=== PATIENT | female | born 1940 | race Caucasian/White ===

== ENCOUNTER 2024-05-01 17:29 | Inpatient (IN) | payer OTHER, SELFPAY ==
[2024-05-01] VITALS (10 sets, daily range): BP systolic 134–166; BP diastolic 68–96; BMI 25.2
--- NOTE | 2024-05-01 15:31 | ED.GENMED ---
History of Present Illness
General
Chief Complaint: Blood Pressure Problem
Source: patient
Exam Limitations: none
Time Seen by Provider: 05/01/24 14:49
Nursing documentation reviewed up to this point in time: agreed with
History of Present Illness
History of Present Illness:
83-year-old female past medical history of hypertension hyperlipidemia presenting to the emergency department today with concerns of feeling lightheaded and feeling unsteady when walking. She denies any specific room spinning dizziness but claims
to be generalized weakness. No specific focal weakness. Denies specific changes in vision trouble speaking or swallowing. Denies any headache no recent injury or recent illness that she is aware of.
Review of Systems
Review of Systems
Allergies reviewed?: Yes
All Other Systems: ROS reviewed and negative except as documented in HPI and ROS
Phy Exam
Physical Exam
Physical Exam:
GENERAL: Alert , in no apparent distress
EYE: pupils equal and reactive normal visual carlin no nystagmus
NECK: Supple, no significant adenopathy.
ENT: o/p clr, mmm.
CARDIAC: Regular rate and rhythm .
LUNGS: Clear breath sounds bilaterally, no acute respiratory distress, no wheezes/rales/rhonchi
ABDOMEN: Soft, without focal tenderness, no r/g, no cvat
NEUROLOGICAL: Alert and oriented, no focal neuro deficits 5 out of 5 upper and lower extremity strength normal sensation with palpating bilaterally normal finger-nose and amfg-iv-muam no pronator drift
SKIN: Warm and dry, skin intact.
MUSCULOSKELETAL: No edema, well perfused.
PSYCH: Normal and appropriate interaction.
Course
Orders/Labs/Results
Orders:
Orders
05/01/24 14:47
ECG [Electrocardiogram (*1)] Urgent
Reason for Study: Vertigo / Dizzy
05/01/24 14:48
EKG- Treatment ONCE
05/01/24 15:00
CT Head W/o Iv Contrast Urgent
Comment:
Reason For Exam: generalized weakness
Regular
At Your Request: Limited Participation
Fluid Restriction: 1000 mL/day (33 oz)
Bedside Glucose- Treatment ONCE
Cardiac Monitoring- Treatment ONCE
05/01/24 15:14
COVID-19 Antigen Urgent
Source: Nasal Swab
Complete Blood Count/With Diff Urgent
Comprehensive Metabolic Panel Urgent
Magnesium Urgent
Comment: ADD ON
Phosphorus Urgent
Comment: ADD ON
Serum Osmolality Urgent
Comment: ADD ON
TSH Reflex To Free T4 Urgent
Troponin I Urgent
Influenza A+B Rapid Molecular Urgent
COMPA Source: Nasal Swab
Specimen Description:
05/01/24 16:01
Add On- LAB Urgent
Tests Added?: urine sodium,urine osmalality, serum osmalality
05/01/24 16:48
Admit/Transfer Patient As Directed
Co-Sign Provider:
Level of Care: Inpatient admission
Assign to:: ICU
Physician / Group: Court Hills
Diagnosis: severe hyponatremia
Reason for Hospitalization: severe hyponatremia
Expected length of stay greater than two midnights?: Yes
ELOS- Estimated Length of Stay in days: 3
I certify the patient meets the requirements for IP care: Yes
PRN Pain Medication Management As Directed
May give lesser potent ordered pain med per pt: Yes
preference::
Protocol:: Medication orders for pain may be administered in a
manner that supports deferring to patient preference
when the pt is:
- Requesting an ordered lesser potent pain medication.
Least to most potent pain medications are defined
as: acetaminophen < NSAID < tramadol < opioids
(morphine, oxycodone, hydromorphone).
- Requesting a lesser dose of the same medication IF
ORDERED.
- Requesting a less intrusive route of administration
if both routes are prescribed by the provider (PO <
IV).
05/01/24 16:50
Code Status As Directed
Resuscitation Status: Full Code
05/01/24 16:52
Add On- LAB Routine
Tests Added?: magnesium, phosphorous
05/01/24 17:00
3% Sodium Chloride 250 ml [Sodium Chloride 3%] 250 ml IV ONCE
05/01/24 17:29
Potassium Chloride [KCl] 20 meq PO NOW STA
05/01/24 18:04
Acetaminophen [Tylenol] 1,000 mg PO Q6HPRN PRN
Enoxaparin Sodium [Lovenox] 40 mg SC QPM
05/01/24 18:04
Consult Finisher Map And Chart [Finisher Map And Chart Consult] Routine
Consulting Provider: Adriana Quesada
Was physician already notified: Yes
Consult Nephrology [NEPHROLOGY CONSULT] Routine
Consulting Provider: Joseph Hernandez V.
Was physician already notified: Yes
Activity As Directed
Activity Level: As Tolerated
Bedside Glucose Monitoring-ONCE As Directed
Comment: upon arrival to ICU
Notify MD As Directed
Notify physician if: While in ICU level of care:
glucose greater than or equal to 180 mg/dL once, contact provider to initiate Critical
Care Glycemic Protocol Target Range 140-180 mg/dL.
Nursing to Place Non Medication Order As Directed
Physician Order: please measure PVR and TT me results
Above order entered?: Yes
Vital Signs As Directed
Frequency: Per unit guidelines
Weight As Directed
Frequency: Daily
Comment: height and weight upon arrival to ICU.
DX Deep Vein Thrombosis Video Routine
05/01/24 18:36
Urinalysis Reflex To Culture Urgent
Date Specimen was Collected: 05/01/24
Time Specimen was Collected: 15:03
Urine Osmolality Random [Osmolality, Random Urine] Urgent
Date Specimen was Collected: 05/01/24
Time Specimen was Collected: 16:09
Urine Sodium Urgent
Date Specimen was Collected: 05/01/24
Time Specimen was Collected: 16:09
05/01/24 20:00
BMP [Basic Metabolic Panel] Q4
INR [Prothrombin Time] Routine
Lisinopril [Zestril] 20 mg PO BID
05/02/24 00:14
BMP [Basic Metabolic Panel] Q4
05/02/24 04:19
BMP [Basic Metabolic Panel] Q4
05/02/24 06:00
Levothyroxine [Synthroid] 25 mcg PO DAILY@0600
CR Chest Portable - 1 View Routine
Comment:
Reason For Exam: baseline ICU
Reason Study Needs to be Portable: Patient Unstable
05/02/24 08:00
BMP [Basic Metabolic Panel] Q4
Amlodipine [Norvasc] 5 mg PO DAILY
Atorvastatin [Lipitor] 10 mg PO DAILY
05/02/24 12:00
BMP [Basic Metabolic Panel] Q4
05/02/24 16:00
BMP [Basic Metabolic Panel] Q4
05/02/24 20:00
BMP [Basic Metabolic Panel] Q4
05/03/24 00:00
BMP [Basic Metabolic Panel] Q4
Abnormal Lab Results
05/01/24
15:14
WBC 4.2 L 10^3/uL
(4.8-10.8)
RBC 2.64 L 10^6/uL
(4.20-5.40)
Hgb 11.1 L g/dL
(12.0-16.0)
Hct 29.8 L %
(37.0-47.0)
MCV 112.9 H fL
(81.0-99.0)
MCH 42.0 H pg
(27.0-31.0)
MCHC 37.2 H g/dL
(33.0-37.0)
RDW 10.6 L %
(11.5-14.5)
Absolute Lymphs (auto) 0.5 L 10^3/uL
(1.2-3.4)
Immature Gran % 1.0 H %
(0-0.5)
Neutrophils % 76.3 H %
(42.2-75.2)
Lymphocytes % 11.3 L %
(20.5-51.1)
Monocytes % 9.9 H %
(1.7-9.3)
Sodium 106 L* mmol/L
(135-145)
Potassium 3.3 L mmol/L
(3.5-5.1)
Chloride 71 L mmol/L
(98-107)
Creatinine 0.5 L mg/dL
(0.6-1.0)
Glucose 128 H mg/dl
(70-99)
Serum Osmolality 228 L mOsm/kg
(275-300)
Magnesium 1.5 L mg/dl
(1.6-2.3)
Total Bilirubin 1.6 H mg/dl
(0.2-1.3)
05/01/24 15:14
05/01/24 15:14
Vital Signs
Initial and Last Documented VS:
Initial Vital Signs
Temp Pulse Resp BP Pulse Ox
98.1 F 69 20 162/85 99
05/01/24 14:49 05/01/24 14:49 05/01/24 14:49 05/01/24 14:49 05/01/24 14:49
Last Documented Vital Signs
Temp Pulse Resp BP Pulse Ox
97.6 F 70 17 157/75 94
05/02/24 04:04 05/02/24 06:00 05/02/24 06:00 05/02/24 06:00 05/02/24 06:00
MDM/Problems Addressed
MDM/Problems Addressed:
83-year-old female presenting to the emergency department today with concerns of lightheadedness generalized weakness over the past 2 days. Denies any specific inciting event or preceding symptoms. She did start new medications for blood pressure
2 weeks ago, carvedilol. On arrival mildly hypertensive otherwise vital signs are normal. Patient no obvious distress no focal neurologic deficits. Labs obtained showing sodium level of 106 chloride of 71 other electrolytes without emergent
findings. This likely explains patient's symptoms. Patient does take chlorthalidone but no obvious additional cause at this point that was identified. No excessive free water intake. Case was discussed with nephrology recommending 20 cc/h
hypertonic saline. Otherwise No worsening of neurologic symptoms during ER stay.
*Critical Care Note
Total Time (30-74mins, 75-104mins- exclusive of procedures): Not Applicable
comment:
Critical care statement: A total of 31 minutes of critical care time was provided for this patient. This includes management of severe electrolyte abnormality discussion with consultants and bedside discussion with patient. This time with separate
from time utilized to perform the aforementioned documented procedures
ED Attending Note
-
Portions of this chart may have been created with voice recognition software.� Occasional wrong word or��sound alike� substitutions may have occurred due to the inherent limitations of voice recognition software.
Discharge Plan
Departure
Patient Disposition: Admit
Date of Disposition: 05/01/24
Time of Disposition: 16:16
Admit to: Telemetry
Admit to doctor: Hills
Presentation/result/management discussed w/ accepting MD/DO: Hospitalist
Patient with high blood pressure during this ER visit?: No
Condition: Fair
Covid-19: Not Applicable
Discharge Problem:
Hyponatremia
Interventions
Interventions:
*General Assessment Last Done: 05/01/24 14:49
*ED COVID-19 Vaccine History Last Done: 05/01/24 18:18
*Nursing Disposition Last Done: 05/01/24 18:12
ED- Cardiac Assessment Last Done: 05/01/24 15:24
ED- Neurological Assessment Last Done: 05/01/24 15:24
ED- Pulmonary Assessment Last Done: 05/01/24 15:24
Discharge Date and Time
Discharge Date/Time: 05/01/24 18:13
[2024-05-01 15:48] LABS: COVID-19 Antigen Negative (Negative)
[2024-05-01 15:51] LABS: ALT (SGPT) 22 U/L (0-35); AST (SGOT) 30 U/L (14-36); Albumin 4.7 g/dl (3.5-5.0); Alkaline Phosphatase 98 U/L (38-126); Blood Urea Nitrogen 16 mg/dl (7-17); Calcium 10.1 mg/dl (8.4-10.2); Carbon Dioxide 22 mmol/L (22-30); Chloride 71 mmol/L (98-107); Glucose 128 mg/dl (70-99); Potassium 3.3 mmol/L (3.5-5.1); Sodium 106 mmol/L (135-145); Total Bilirubin 1.6 mg/dl (0.2-1.3); eGFR > 60.00
[2024-05-01 15:58] LABS: Troponin I < 0.012 ng/ml
--- NOTE | 2024-05-01 16:12 | W.CON.NEPH ---
Consultation
-
Date/Time Consultation Requested: 05/01/2024 4:00
Date/Time Consultation Performed: 05/01/2024 4:00 PM
Requesting Provider: Dr. Hills
Performing Provider: Dr. Hernandez
Reason for Consultation: Hyponatremia
Medical History
-
Chief Complaint: Hyponatremia
History of Present Illness:
The patient is a 83-year-old female with a past medical history of hypertension maintained on chlorthalidone, amlodipine, lisinopril, and recently over the past 2 weeks carvedilol. She presented to the hospital feeling lightheaded and unstable with
her walking. On presentation to the hospital she was found to have a serum sodium of 106 and nephrology was emergently consulted. Patient with noted change of mental status.
Past Medical History
HTN
Dyslipidemia
Hypothyroidism
Social History
Tobacco: Non-Smoker
Alcohol: Occasional
Drug: None
Personal: Single
Family History
Family History: Not Pertinent
Allergies / Home Medications
Allergy/AdvReac Type Severity Reaction Status Date / Time
ciprofloxacin Allergy Unknown Verified 05/01/24 14:48
Review of Systems
-
History Source: Patient
All other systems: Negative unless noted
Constitutional: Fatigue and Other (Patient expresses extreme anxiety, poor p.o. intake)
Respiratory: No Symptoms
Cardiac: No Symptoms
Abdomen/GI: No Symptoms
: No Symptoms
Musculoskeletal: Other (Thigh discomfort)
Skin: No Symptoms
Neurological: Other (Confusion, fall last week, unstable gait)
Physical Exam
Vital Signs
Vital Signs
Temp Pulse Resp BP Pulse Ox
98.1 F 69 29 162/85 98
05/01/24 14:49 05/01/24 15:23 05/01/24 15:23 05/01/24 14:49 05/01/24 15:23
Lab Results
05/01/24 15:14
05/01/24 15:14
Sodium 106 mmol/L (135-145) L* 05/01/24 15:14
Potassium 3.3 mmol/L (3.5-5.1) L 05/01/24 15:14
Chloride 71 mmol/L (98-107) L 05/01/24 15:14
Carbon Dioxide 22 mmol/L (22-30) 05/01/24 15:14
BUN 16 mg/dl (7-17) 05/01/24 15:14
Creatinine 0.5 mg/dL (0.6-1.0) L 05/01/24 15:14
eGFR > 60.00 05/01/24 15:14
Glucose 128 mg/dl (70-99) H 05/01/24 15:14
Calcium 10.1 mg/dl (8.4-10.2) 05/01/24 15:14
Albumin 4.7 g/dl (3.5-5.0) 05/01/24 15:14
Physical Exam
General: AOx2, Nontoxic , NAD, lethargic
HEENT: PERRL, EOMI, Anicteric, Conjunctivae Clear, Ear/Nose Intact, Hearing Normal, Oropharynx Clear/Moist, Dentition Intact, Facial Symmetry, Neck Supple, Neck: Trachea Midline, No JVD and No Thyromegaly, no Bruits
Respiratory: Clear to auscultation bilaterally with normal lung excursion
Cardiac: S1/S2 and Regular Rate/Rhythm
Breast: Deferred by me
Abdomen: Soft, Nontender, Nondistended, Normal Bowel Sounds and No Hepatosplenomegaly
Rectal: Deferred by Provider
Genito-urinary: No Costovertebral Tenderness
Extremities: No Clubbing, No Cyanosis and No Edema
Skin: No Rash or open lesions
Neuro: Nonfocal/Grossly Intact, CN II-XII (Intact) and Strength (Musculoskeletal exam 5 out of 5 both upper and lower extremities)
Hematologic/Lymphatic: No Cervical Lymphadenopathy, No Submandibular Lymphadenopathy and No Supraclavicular Lymphadenopathy
Psych: Anxious affect
Vascular: plus 2 pedal and radial pulses
Data Reviewed
-
CT Scan: Report Reviewed by me (CT of head report to be reviewed: No intracranial abnormalities noted)
Medical Tests (Nuc Med, Echo etc): Other (EKG report reviewed personally sinus rhythm with PACs left anterior fascicular block at 72 beats per)
Labs: Labs Reviewed by me (BMP CBC)
Assessment/Plan
-
Impression:
Euvolemic hyponatremia (sodium of 106)
Hypokalemia
Change of mental status
Hypertension
Dyslipidemia
Hypothyroid
Plan:
Hyponatremia
-Patient critically ill with symptomatic hyponatremia with serum sodium level of 106
-Obtain urine osmolality urine sodium
-Patient is at high risk for neurological event including seizure and central pontine myelinolysis the patient is overcorrected too rapidly
-Fluid restriction set at 1000 cc/day
-Hypertonic saline to be started at 20 cc/h with every 4 hour electrolytes to be follow
-Goal correction rate of serum sodium should be around 10 mill moles per liter over next 24 hours
-Follow-up TSH and free T4
-Replete potassium with 40 mill equivalents
-Patient is critically ill and will be admitted to the intensive care unit for profound symptomatic hyponatremia with significant risk for neurological sequela
-40 minutes of critical care time spent with patient
[2024-05-01 16:15] LABS: TSH Reflex To Free T4 2.18 uIU/ml (0.47-4.68)
[2024-05-01 16:23] LABS: % Basophils 0.5 % (0-2); % Lymphocytes 11.3 % (20.5-51.1); % Monocytes 9.9 % (1.7-9.3); % Neutrophils 76.3 % (42.2-75.2); Absolute Lymphocytes 0.5 10^3/uL (1.2-3.4); Absolute Monocytes 0.4 10^3/uL (0.1-0.6); Absolute Neutrophils 3.2 10^3/uL (1.4-6.5); Hematocrit 29.8 % (37.0-47.0); Hemoglobin 11.1 g/dL (12.0-16.0); Mean Corp Hgb Conc. 37.2 g/dL (33.0-37.0); Mean Corpuscular Volume 112.9 fL (81.0-99.0); Mean Platelet Volume 8.8 fL (7.4-10.4); Nucleated Red Blood Cells % 0.5 %; Platelet Count 331 10^3/uL (130-400); Red Blood Cell Count 2.64 10^6/uL (4.20-5.40); Red Cell Dist. Width 10.6 % (11.5-14.5); White Blood Cell Count 4.2 10^3/uL (4.8-10.8)
--- NOTE | 2024-05-01 16:23 | HPS.HSE ---
Family Physician
-
Family Physician: CAPO CHAN MD
Chief Complaint
-
weakness/fatigue
History of Present Illness
Ms. Mara Ambrose is a 83 yo woman with hx essential HTN, HLD presents to the ER with weakness. She is seen at bedside with her friend.
Patient states she feels very panicky and weak. She lives alone. Doesn't normally use a cane or a walker. She had a fall last week (outside, got knocked by the wind) and hit her head. Per friend she refused to come to the ER. Currently patient
denies headache or focal weakness.
No recent fevers/chills. She hasn't been eating well. Reports drinking a lot of water but friend shakes her head no. No abdominal pain. No nausea/vomiting/diarrhea. No LE swelling.
Per friend, another friend last week and since then patient has been very anxious.
She is on Chlorthalidone at home
Medical History
Past Medical History
Past Medical History: Reports HTN and Hypercholesterolemia
Past Surgical History: Reports Other
Social History
Tobacco: Non-smoker
Alcohol: Occasional
Family History
Family History: Not pertinent
Allergies / Home Medications
Allergies reflects when Allergies were last updated in [facility].
Home Medications with original date entered in [facility]
Allergy/Medication List:
Allergies
Allergy/AdvReac Type Severity Reaction Status Date / Time
ciprofloxacin Allergy Unknown Verified 05/01/24 14:48
Home Medications
acetaminophen 500 mg tablet (Tylenol Extra Strength) 1,000 mg PO Q6HPRN PRN mild pain/fever 05/01/24
amlodipine 5 mg tablet 5 mg PO DAILY 05/01/24
atorvastatin 10 mg tablet 10 mg PO DAILY 05/01/24
chlorthalidone 25 mg tablet 25 mg PO DAILY 05/01/24
cholecalciferol (vitamin D3) 25 mcg (1,000 unit) tablet (Vitamin D3) 25 mcg PO DAILY 05/01/24
hydroxyurea 500 mg capsule 500 mg PO BID 05/01/24
levothyroxine 25 mcg tablet 25 mcg PO DAILY 05/01/24
lisinopril 20 mg tablet 20 mg PO BID 05/01/24
Review of Systems
-
History Source: Patient
A 12 point ROS was completed and negative except as noted: Yes
Physical Exam
Vital Signs
Vital Signs
Temp Pulse Resp BP Pulse Ox
98.1 F 69 29 162/85 98
05/01/24 14:49 05/01/24 15:23 05/01/24 15:23 05/01/24 14:49 05/01/24 15:23
Physical Exam
General: No Apparent Distress
HEENT: PERRLA
Respiratory: Clear; No Wheezes
Cardiac: S1/S2 and Regular Rhythm
GI: Soft and Non Tender
Musculoskeletal: No Edema
Skin: Warm and Dry; No Rash
Neuro: AO x 3
Psych: Confused
Laboratory Results
-
05/01/24 15:14
Laboratory Results
Total Bilirubin 1.6 mg/dl (0.2-1.3) H 05/01/24 15:14
AST 30 U/L (14-36) 05/01/24 15:14
ALT 22 U/L (0-35) 05/01/24 15:14
Alkaline Phosphatase 98 U/L (38-126) 05/01/24 15:14
Troponin I < 0.012 ng/ml 05/01/24 15:14
Data Reviewed
-
Diagnostic Radiology: Report Reviewed by me
Lab Data: Labs Reviewed by me
Impression/Plan
-
Ms. Mara Ambrose is a 83 yo woman with hx essential HTN, HLD presents to the ER with weakness.
Triage VS: T 98.1, P 69, RR 20, BP 162/85, SpO2 99%
LABS: WBC 4.2, Hg 11.1, PLT 331, Na 106, K+ 3.3, Cl 71, Cr 0.5, Glucose 128, T. Bili 1.6, AST 30, ALT 22, Alk Phos 98, Trop < 0.012
TSH 2.18
3% Saline ordered
Severe Hyponatremia
-3% Saline ordered - give at 20cc/hr
-admit to ICU
-q4 BMP checks
-appreciate Renal Consult, Exchange Clerk consult
-1000cc fluid restriction
-hold [employer]DLEWARE SOLUTIONS ARCHITECT Chlorthalidone
-hold MID[employer]LE[employer] SOLUTIONS ARCHITECT Hydroxyurea for now (can affect Na)
-F/U urine studies
-F/U PVR
-PT/OT when labs more stable
Essential HTN
-hold [employer] SOL[employer] ARCHITECT Chlorthalidone now and at discharge
-M[employer]DLE[employer] SOL[employer]IONS ARCHITECT amlodipine, Lisinopril
HLD - MIDDLEWARE SOLUTIONS ARCHITECT Atorvastatin
Hypothyroidism - MIDDLEWARE SOLUTIONS ARCHITECT Synthroid
DVT PPx Lovenox subQ
FULL CODE
Total Critical Care Time 60_ minutes. I was immediately available to the patient and staff. I personally examined, reviewed labs, diagnostic images/reports, interpretations, treatment plans, discussed patient care with other providers and family
or caregivers (if patient is unable to make decisions), entered orders as appropriate and documented the medical record.
[2024-05-01] MEDS: SODIUM CHLORIDE 3% 250 IV (16:39)
[2024-05-01 17:03] LABS: Osmolality Serum 228 mOsm/kg (275-300)
[2024-05-01 17:16] LABS: Magnesium 1.5 mg/dl (1.6-2.3); Phosphorus 2.8 mg/dl (2.5-4.5)
[2024-05-01] MEDS: KCL 20 MEQ PO (17:50)
[2024-05-01 18:24] LABS: Glucose - Point of Care 137 mg/dl (70-99)
--- NOTE | 2024-05-01 18:55 | PTCARENOTE ---
Pt received as admit from ED. AAOx3. Pt states 'I'm very anxious, I feel like I'm having a panic attack.' Dr. Hills notified. Will try to avoid sedative medications due to low sodium level but can give low dose Ativan if needed. 3% NS infusing
through R FA PIV per order. Purewick in place upon arrival. Pt stating that she feels the need to urinate but unable to do so. Bladder scanned pt for 798mL. straight cath for 900mL. NSR on tele, HRs 70s. SpO2 97% on room air. Assessment documented.
Pt resting in bed, call caputo in reach. Plan for repeat BMP at 1999.
[2024-05-01 19:06] LABS: Urine Albumin Negative (Neg - Trace); Urine Bilirubin Negative (Negative); Urine Character Clear (Clear); Urine Color Yellow; Urine Glucose Negative (Negative); Urine Ketone 3+ (Negative); Urine Leukocyte Negative (Negative); Urine Nitrite Negative (Negative); Urine Occult Blood Negative (Negative); Urine Urobilinogen Negative (Neg - 1+)
[2024-05-01] MEDS: LOVENOX 40 MG SC (19:13)
[2024-05-01] MEDS: ZESTRIL 20 MG PO (19:13)
[2024-05-01 19:14] LABS: Osmolality Urine 426 mOsm/kg (300-900)
[2024-05-01 19:29] LABS: Urine Sodium 112 mmol/L (30-90)
--- NOTE | 2024-05-01 20:20 | PTCARENOTE ---
Received pt from previous RN. Pt is AAOx3, anxious, forgetful, [place]. Pt states she is anxious and feels panicky, ICU GRID OPERATOR Renetta notified, Melatonin ordered (see MAR). NSR w/ PACs on the monitor. On RA O2 sat 96%, lungs diminished. Pt with poor
appetite. Pt states she is having difficulty voiding, will bladder scan per protocol. 3% infusing @ 20 ml/hr. CHG and mouth care provided.
--- NOTE | 2024-05-01 20:23 | PTCARENOTE ---
Received pt from previous RN. Pt is AAOx3, anxious, forgetful, [place]. Pt states she is anxious and feels panicky, ICU MARKETING CONTENT COORDINATOR Renetta notified, Melatonin ordered (see MAR). NSR w/ PACs on the monitor. On RA O2 sat 96%, lungs diminished. Pt with poor
appetite, nausea and vomited x1, PRN Zofran added (see MAR). Pt states she is having difficulty voiding, will bladder scan per protocol. 3% infusing @ 20 ml/hr. CHG and mouth care provided. Friend and daughter @ bedside. Safe environment maintained.
[2024-05-01 20:26] LABS: INR 1.02; PT 13.9 Sec (11.4-14.6)
[2024-05-01 20:27] LABS: APTT 46.2 Sec (23.4-35.0)
[2024-05-01 21:02] LABS: Blood Urea Nitrogen 13 mg/dl (7-17); Calcium 9.6 mg/dl (8.4-10.2); Carbon Dioxide 23 mmol/L (22-30); Chloride 72 mmol/L (98-107); Estimated Creatinine Clearance 55 ml/min; Glucose 201 mg/dl (70-99); Potassium 3.2 mmol/L (3.5-5.1); Sodium 106 mmol/L (135-145); eGFR > 60.00
[2024-05-01] MEDS: MELATONIN 5 MG PO (21:12)
[2024-05-01] MEDS: KCL ELIXIR 40 MEQ PO (21:12)
[2024-05-01] MEDS: ZOFRAN 4 MG IV (22:08)
[2024-05-02] VITALS (22 sets, daily range): BP systolic 99–157; BP diastolic 56–85; BMI 24.9
--- NOTE | 2024-05-02 00:47 | PTCARENOTE ---
Systems reviewed. Pt with no urine output, bladder scanned for 580ml, straight cath for 650ml. Daughter @ bedside. Safe environment maintained.
[2024-05-02 01:04] LABS: Blood Urea Nitrogen 11 mg/dl (7-17); Calcium 9.5 mg/dl (8.4-10.2); Carbon Dioxide 22 mmol/L (22-30); Chloride 75 mmol/L (98-107); Estimated Creatinine Clearance 55 ml/min; Glucose 146 mg/dl (70-99); Potassium 3.7 mmol/L (3.5-5.1); Sodium 106 mmol/L (135-145); eGFR > 60.00
--- NOTE | 2024-05-02 01:30 | W.PN.UPDATE ---
Update Note
Progress Note Update
Updated Dr. Hernandez, header setup operator about repeat BMP Na is 106, recommendations received will increase hypertonic saline 3% to 30cc/hr and continue trend BMP.
--- NOTE | 2024-05-02 01:49 | PTCARENOTE ---
ICU SHOE TURNER Renetta notified Sherrie Hernandez 106. 3% increased to 30 ml/hr.
--- NOTE | 2024-05-02 03:02 | VATNOTE ---
PICC ORDER NOTED. PT WITH ADEQUATE IV ACCESS AT THIS TIME. APPROPRIATE FOR INSERTION IN AM PER PCN.
[2024-05-02] MEDS: SODIUM CHLORIDE 3% 250 IV (03:12)
--- NOTE | 2024-05-02 04:45 | PTCARENOTE ---
Systems reviewed, no new changes in assessment. Pt still very anxious, confused and panicky. AM labs provided. Safe environment maintained.
[2024-05-02] MEDS: SYNTHROID 25 MCG PO (05:31)
[2024-05-02 05:33] LABS: Blood Urea Nitrogen 10 mg/dl (7-17); Calcium 9.5 mg/dl (8.4-10.2); Carbon Dioxide 20 mmol/L (22-30); Chloride 74 mmol/L (98-107); Estimated Creatinine Clearance 55 ml/min; Glucose 117 mg/dl (70-99); Magnesium 1.4 mg/dl (1.6-2.3); Potassium 3.3 mmol/L (3.5-5.1); Sodium 107 mmol/L (135-145); eGFR > 60.00
[2024-05-02] MEDS: MAGNESIUM SULFATE 50 IV (06:07)
[2024-05-02] MEDS: KCL 270 MEQ IV (06:15)
[2024-05-02 07:27] LABS: Hematocrit 32.9 % (37.0-47.0); Hemoglobin 12.8 g/dL (12.0-16.0); Mean Corp Hgb Conc. 38.9 g/dL (33.0-37.0); Mean Corpuscular Hgb 42.5 pg (27.0-31.0); Mean Corpuscular Volume 109.3 fL (81.0-99.0); Platelet Count 320 10^3/uL (130-400); Red Blood Cell Count 3.01 10^6/uL (4.20-5.40); Red Cell Dist. Width 10.4 % (11.5-14.5); White Blood Cell Count 5.9 10^3/uL (4.8-10.8)
[2024-05-02] MEDS: LIPITOR 10 MG PO (07:47)
--- NOTE | 2024-05-02 08:02 | W.PN.NEPH.PH ---
Today's Communication / Plan
-
Maintain hypertonic saline at 30 cc [address] Hinojosa cath
Continue electrolytes every 4 hours
Assessment/Plan
-
Impression:
Euvolemic hyponatremia (sodium of 106)
Hypokalemia
Change of mental status
Hypertension
Dyslipidemia
Hypothyroid
Plan:
Hyponatremia
-Patient critically ill with symptomatic hyponatremia with serum sodium level of 106 now only up to 107
-Continue every 4 hour electrolyte
-Place Hinojosa catheter as she has been straight cath intermittently for large volumes
-Obtain urine osmolality urine sodium: 426 and 112
-Patient is at high risk for neurological event including seizure and central pontine myelinolysis the patient is overcorrected too rapidly
-Fluid restriction set at 1000 cc/day
-Will continue hypertonic saline and Lasix as needed t
-Goal correction rate of serum sodium should be around 10 mill moles per liter over next 24 hours
-Replete potassium with 40 mill equivalents
-Patient is critically ill and will be admitted to the intensive care unit for profound symptomatic hyponatremia with significant risk for neurological sequela
-Spoke with daughter this morning who says patient does have a history of breast cancer and is being seen by an outside oncology group
-Daughter will try to obtain last lab work and notes from oncology
-Underlying hyponatremia could be due to paraneoplastic phenomena
-31 minutes of critical care time spent with patient
-
-
Date of Service: May 02, 2024
CC / HPI / ROS
-
Chief Complaint:
Symptomatic hyponatremia
History of Present Illness:
Serum sodium up to 107 with hypertonic saline infusion in progress and FR
Hemodynamically stable
Review of Systems:
Nonoliguric but requiring straight cath
No fevers
No shortness of breath or chest
Labs
-
Labs:
WBC 5.9 10^3/uL (4.8-10.8) 05/02/24 05:57
RBC 3.01 10^6/uL (4.20-5.40) L 05/02/24 05:57
Hgb 12.8 g/dL (12.0-16.0) 05/02/24 05:57
Hct 32.9 % (37.0-47.0) L 05/02/24 05:57
Plt Count 320 10^3/uL (130-400) 05/02/24 05:57
eGFR > 60.00 05/02/24 04:19
Phosphorus 2.8 mg/dl (2.5-4.5) 05/01/24 15:14
Albumin 4.7 g/dl (3.5-5.0) 05/01/24 15:14
Physical Exam
-
Vital Signs:
Vital Signs
Temp Pulse Resp BP Pulse Ox
97.6 F 63 13 111/63 97
05/02/24 04:04 05/02/24 07:00 05/02/24 07:00 05/02/24 07:00 05/02/24 07:10
Cardiovascular:: Regular rate and rhythm
Respiratory:: Bilateral: CTA
Lung Excursion:: Normal
Abdomen:: Nontender and Soft
Extremity Edema:: None: Bilateral:
Hinojosa Catheter: No
[2024-05-02] MEDS: ZESTRIL 20 MG PO ×2 (08:15→21:11)
[2024-05-02] MEDS: ZOFRAN 4 MG IV ×2 (08:15→21:24)
[2024-05-02 09:11] LABS: Blood Urea Nitrogen 7 mg/dl (7-17); Calcium 9.4 mg/dl (8.4-10.2); Carbon Dioxide 24 mmol/L (22-30); Chloride 76 mmol/L (98-107); Estimated Creatinine Clearance 55 ml/min; Glucose 115 mg/dl (70-99); Potassium 3.7 mmol/L (3.5-5.1); Sodium 110 mmol/L (135-145); eGFR > 60.00
--- NOTE | 2024-05-02 09:30 | PTCARENOTE ---
Received pt from slot shift supervisor RN. AAOx3, continues to be very anxious. Tearful at times. [place]. NSR on library monitor, HRs 70s. SpO2 95% on room air. 3% infusing through PIV @ 30mL/hr. Order for PICC placed. 0800 BMP resulted with Na 110. continuing
q4h BMPs. Hinojosa placed for critical I&Os. Pt resting in bed, call caputo in reach. Family at bedside.
[2024-05-02] MEDS: TYLENOL 1000 MG PO (10:58)
--- NOTE | 2024-05-02 11:24 | CON.INTV ---
Addendum entered and electronically signed by Cherry Zhou DO 05/03/24 09:47:
Transferred to floors, reviewed with third shift lieutenant, will sign off at this time
Please call with questions
Original Note:
Consultation
Consultation Request
Date/Time Consultation Requested: 05/01/24 18:04
Date/Time Consultation Performed: 05/02/24 08:00
Requesting Provider: Court Hills MD
Performing Provider: Adriana Quesada MD; Jovanni Yang DO (Resident)
Reason for Consultation: Severe Hyponatremia
Medical History
-
Chief Complaint: Lightheadedness, unsteady gait
History of Present Illness:
Mara Ambrose is an 83 year old female with a past medical history of hypertension (on chlorthalidone, amlodipine, carvedilol and lisinopril), hyperlipidemia and breast cancer who presented to the emergency department yesterday with
lightheadedness and unsteady gait. The patient states that although it was at it's worst yesterday, she noted that she was definitely 'feeling off' for at least a week. The patient denied any additional symptoms including but not limited to
headaches, focal neurologic deficits, vision changes, and speech changes. In the emergency department, the patient's physical examination was largely benign, save mild hypertension. Sodium was 106, potassium 3.3. Head CT did not show any evidence of
acute intracranial abnormalities. ECG showed a sinus rhythm with some PACs, left anterior fascicular block, and poor R wave progression. The patient was started on hypertonic saline and admitted to the intensive care unit for intensive monitoring.
This morning patient seen and examined with daughter at the bedside, the patient reports no physical symptoms, denying chest pain, shortness of breath, trouble seeing, dizziness, abdominal pain, nausea, vomiting, or changes in bowel habits.
Additionally, daughter notes that her mother looks better and more with it in comparison t yesterday. The patient does endorse feeling anxious and worried. Per nursing, the patient was originally started on 20mL/hr of hypertonic saline and
transitioned to 30mL/hr overnight. The patient complained of not having urinated in a while, and bladder scan revealed urinary retention, prompting straight cath that drained 1900cc of urine and subsequent placement of Hinojosa catheter.
Past Medical History
Past Medical History: Cancer, HTN and Hypercholesterolemia
Social History
Tobacco: Non-smoker
Alcohol: Occasional
Drug: None
Family History
Family History: Reviewed & Not Pertinent
Allergies / Home Medications
Allergies
Allergy/AdvReac Type Severity Reaction Status Date / Time
ciprofloxacin Allergy Unknown Verified 05/01/24 14:48
Home Medications
�Medication �Instructions �Recorded �Confirmed �Last Taken �Type
acetaminophen 500 mg tablet 1,000 mg PO Q6HPRN PRN mild 05/01/24 05/01/24 Unknown History
(Tylenol Extra Strength) pain/fever
amlodipine 5 mg tablet 5 mg PO DAILY Blood Pressure 05/01/24 05/01/24 Unknown History
atorvastatin 10 mg tablet 10 mg PO DAILY High Cholesterol 05/01/24 05/01/24 Unknown History
carvedilol 6.25 mg tablet 6.25 mg PO BID Blood Pressure 05/01/24 05/01/24 Unknown History
chlorthalidone 25 mg tablet 25 mg PO DAILY Blood Pressure 05/01/24 05/01/24 Unknown History
cholecalciferol (vitamin D3) 25 25 mcg PO DAILY Supplement 05/01/24 05/01/24 Unknown History
mcg (1,000 unit) tablet (Vitamin
D3)
hydroxyurea 500 mg capsule 500 mg PO BID hematologic issue 05/01/24 05/01/24 Unknown History
levothyroxine 25 mcg tablet 25 mcg PO DAILY Thyroid 05/01/24 05/01/24 Unknown History
lisinopril 20 mg tablet 20 mg PO BID Blood Pressure 05/01/24 05/01/24 Unknown History
Review of Systems
-
History Source: Patient
Constitutional: Fever (n), Fatigue (n) and Chills (n)
Respiratory: No Symptoms
Cardiac: No Symptoms
Abdomen/GI: No Symptoms
: Difficulty Voiding
Musculoskeletal: No Symptoms
Neuro: No Symptoms and Other (anxiety)
Vitals / Labs / Diagnostic Testing
Vital Signs
Temp Pulse Resp BP Pulse Ox
98.2 F 73 21 121/73 96
05/02/24 08:10 05/02/24 11:00 05/02/24 11:00 05/02/24 11:00 05/02/24 11:00
Lab Data
05/02/24 05:57
Laboratory Results
05/01/24
20:00
PT 13.9
INR 1.02
APTT 46.2 H
Microbiology
05/01/24 15:14 Nasal Swab Influenza Types A & B (ADOLFO) - Final
Negative for Influenza A & B, NAAT
Negative results must be combined with clinical observations
and patient history.
Nucleic Acid Amplification test (NAAT)performed on the
[employer] platform.
Diagnostic Testing:
Laboratory Tests
05/02/24
04:19
Sodium 107 L*
Potassium 3.3 L
Chloride 74 L
Carbon Dioxide 20 L
BUN 10
Creatinine 0.4 L
Magnesium 1.4 L
CXR (05/01/24): No acute disease of the chest. Mild cardiomegaly.
Physical Exam
-
HEENT: Normocephalic, Anicteric and Moist Mucous Membranes
Cardiovascular: S1/S2, Regular Rhythm, Murmur (n), Rub (n) and Peripheral Edema (n)
Respiratory: Clear, Wheeze (n), Rales (n), Rhonchi (n), Non-Labored Respirations and Accessory Resp Muscle Use (n)
GI: Soft, Non Distended and Non Tender
Neurology: Awake, Alert and Oriented
Skin: Warm and Dry
General: Respiratory Distress (n), Comfortable (n) and Other (anxious)
Assessment
-
Mara Ambrose is an 83 year old female with a past medical history of hypertension (on chlorthalidone, amlodipine, carvedilol and lisinopril), hyperlipidemia, hypothyroidism, and breast cancer who presented to the emergency department yesterday
with lightheadedness and unsteady gait, starting approximately 1 week ago and progressively worsening. In the emergency department, the patient's physical examination was largely benign, save mild hypertension. Sodium was 106, potassium 3.3. Head CT
did not show any evidence of acute intracranial abnormalities. ECG showed a sinus rhythm with some PACs, left anterior fascicular block, and poor R wave progression. The patient was started on hypertonic saline and admitted to the intensive care
unit for further evaluation in the setting of intensive monitoring.
Assessment
1. Severe Euvolemic Hypotonic Hyponatremia
- Urine Sodium on Admission 106
- Admitted to ICU 05/02, started on 20mL/hr hypertonic saline and transitioned to 30mL/hr this morning
- Calculated Serum osmolarity = 224 (hypoosmolar); Urine osmolarity 426; Urine sodium 112 (h)
- Euvolemic on examination; consider that this is secondary to SIADH
- Sodium steadily increasing on q4h BMPs, currently 110
2. Hypokalemia
- K 3.3 on admission
3. Hypomagnesemia
- Magnesium 1.5 on admission
4. Urinary Retention
- Symptoms of urinary retention this morning
- Straight cath drained 1900 cc; Hinojosa Catheter placed with resolution of symptoms
5. Anxiety
Chronic Conditions Present Prior to Arrival
Hyperlipidemia
Hypothyroidism
History of Breast Cancer
Plan
Neurologic
- RASS goal 0 to 1
- Acetaminophen 1000 mg PO q6h PRN for mild pain
- Anxiety likely secondary to hyponatremia, monitor as hyponatremia improves
Cardiovascular
- Hold chlorthalidone which is a likely precipitant of hyponatremia
- With BPs at goal in the setting of IVF resuscitation, hold amlodipine
- Continue home dose Lisinopril
- Continue home dose Atorvastatin
Respiratory
- Incentive Spirometry and Out of Bed/PT/OT as able once sodiums stabilized
GI
-Zofran as needed for nausea
/Renal
- Monitor Hinojosa; urine output
- Continued hypertonic saline; aim for goal correction rate of 10mL over the first 24 hours
- Replete potassium
- Replete magnesium
- Recheck BMP
- Fluid restriction to 1L/day
ID
- None, monitor daily temps.
Heme/Onc
- Lovenox for DVT PPx
Endocrine
- Follow up TSH as a thyroid disorder is a potential cause of hyponatremia
- Continue home dose Levothyroxine
Data Reviewed
-
EKG: Tracing personally visualized and interpreted and Report reviewed by me
Radiology: Report reviewed by me
Labs: Labs reviewed by me and Discussed with Patient
Critical Care Time (in minutes): 31
Total Time Spent with Patient (in minutes): 22
[2024-05-02 12:43] LABS: Blood Urea Nitrogen 8 mg/dl (7-17); Calcium 9.3 mg/dl (8.4-10.2); Carbon Dioxide 26 mmol/L (22-30); Chloride 79 mmol/L (98-107); Estimated Creatinine Clearance 55 ml/min; Glucose 159 mg/dl (70-99); Potassium 3.4 mmol/L (3.5-5.1); Sodium 112 mmol/L (135-145); eGFR > 60.00
--- NOTE | 2024-05-02 13:13 | W.PN.UPDATE ---
Update Note
Progress Note Update
Seen and examined by me independently in collaboration with the medical staff director.
Lab data and imaging data reviewed.
Addendum as below :
Patient admitted with severe symptomatic hyponatremia with admitting sodium of 106. Slow improvement to 110 noted. Aim to correct by 10 meq per 24 hours. Continue with hypertonic solution per nephrology. Follow in ICU.
No clinical evidence of fluid overload.
Suspicion is for diuretic induced hyponatremia.Reassess Na levels after holding chlorthalidone and correction of Na .
DW daughter at bedside.
DW RN
Total time spent on today's encounter was 52 minutes which included time spent in counseling the patient/family regarding diagnosis and treatment plan as listed above, goals of care, and symptom management. Case was discussed with nursing staff,
specialists, and care coordinators/case management. All labs and imaging personally reviewed by me. Remainder the time spent in detailed review of previous records, lab data, imaging, and other medical provider documentation.
--- NOTE | 2024-05-02 13:18 | PTCARENOTE ---
Assessment unchanged. Na 112 on 1200 BMP. Repeat BMP at 1600.
--- NOTE | 2024-05-02 13:47 | CM ---
CM following re: discharge planning.
Reviewed pt's chart, met with t and pt's daughter Cherry at bedside.
Pt is an 83 year old [facility] female, admitted with primary dx of severe symptomatic hyponatremia.
Pt reports she lives alone in an apartment [address] [place] [address], no steps, has 2 supportive children. 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 No DME, VN or SNF history.
Pt's daughter stated that her mother will not return back to her apartment to live alone and daughter stated she will bring the pt to her house in [place]. Pt expressed her agreement. Per daughter, she feels that her mother is very deconditioned and she
might need to go to a SNF before pt will be able to go to daughter's house in [place]. per daughter, if SNF level of care recommended, she preferred [facility]. Pt's daughter stated her father was there before and she liked.
PT and OT will evaluate the pt to determine a level of care at discharge.
PCP: Delphine Pretty
Pharmacy: [facility]
D/C plan: possible SNF and family preferred [facility]. Awaiting PT/OT evaluations.
[2024-05-02 16:33] LABS: Blood Urea Nitrogen 10 mg/dl (7-17); Calcium 9.6 mg/dl (8.4-10.2); Carbon Dioxide 25 mmol/L (22-30); Chloride 78 mmol/L (98-107); Estimated Creatinine Clearance 55 ml/min; Glucose 119 mg/dl (70-99); Potassium 3.7 mmol/L (3.5-5.1); Sodium 113 mmol/L (135-145); eGFR > 60.00
--- NOTE | 2024-05-02 17:09 | W.PN.HOSP.TC ---
Today's Communication/Plan
-
Continue 3% NS per nephro recs, Q4H BMP
Assessment / Plan
Assessment / Plan
83 yo woman with hx of essential HTN, HLD, remote hx of breast ca s/p radiation, and unspecified hemoncologic disorder, who presents with severe symptomatic hyponatremia.
Severe symptomatic hyponatremia
Suspect secondary to thiazide diuretic, vs SIADH per urine studies. TSH normal
-3% Saline per nephro recs. Slow improvement to 110 noted. Aim to correct by 10 meq per 24 hours
-q4 BMP checks
-1000cc fluid restriction
-holding Chlorthalidone. Hydroxyurea being held, for potential role in hyponatremia
Essential HTN
-Chlorthalidone
-MANAGER RN amlodipine, Lisinopril
HLD - Cont Atorvastatin
Hypothyroidism - Continue Synthroid, TSH normal
DVT PPx Lovenox subQ
FULL CODE
Anticipated Discharge: > 48 hours
Subjective/Interval History
-
Date of Service: May 02, 2024
Objective Data
-
Labs:
Laboratory Results
05/02/24 05/02/24 05/02/24
04:19 05:57 08:13
WBC Cancelled 5.9
Hgb Cancelled 12.8
Hct Cancelled 32.9 L
Plt Count Cancelled 320
Sodium 107 L* 110 L*
Potassium 3.3 L 3.7
Chloride 74 L 76 L
Carbon Dioxide 20 L 24
BUN 10 7
Creatinine 0.4 L 0.5 L
Glucose 117 H 115 H
Calcium 9.5 9.4
05/02/24 05/02/24
12:06 15:59
WBC
Hgb
Hct
Plt Count
Sodium 112 L* 113 L*
Potassium 3.4 L 3.7
Chloride 79 L 78 L
Carbon Dioxide 26 25
BUN 8 10
Creatinine 0.5 L 0.5 L
Glucose 159 H 119 H
Calcium 9.3 9.6
Vital Signs:
Vital Signs
Temp Pulse Resp BP Pulse Ox
98.4 F 78 22 136/63 95
05/02/24 16:04 05/02/24 15:00 05/02/24 15:00 05/02/24 15:00 05/02/24 15:00
I&O
05/01/24 05/02/24 05/03/24
06:59 06:59 06:59
Intake Total 1265 / 1320 805 / 805
Output Total 1950 / 1950 625 / 625
Balance -685 / -630 180 / 180
Review of Systems
-
History Source: Patient
Constitutional: Reports No Appetite and Fatigue
Respiratory: Denies Trouble Breathing
Cardiac: Denies Chest Pain
Abdomen/GI: Reports Nausea; Denies Abdominal Pain or Vomiting
Psych: Reports Anxious
Physical Exam
-
General: Well Developed, Well Nourished and Other (Appears anxious)
HEENT: Atraumatic, Moist Mucous Membranes and Anicteric
Respiratory: Clear to Auscultation (anteriorly) and Non Labored Respirations; Negative Wheezes, Rales, Rhonchi or Crackles
Cardiac: Regular Rhythm and S1/S2; Negative Murmur, Rub or Calf Tenderness
GI: Soft, Nontender, Nondistended and Normal Bowel Sounds
Musculoskeletal: No Clubbing, No Cyanosis and No Edema
Skin: Warm and Dry
Neuro: Awake, Alert and Oriented
Psych: Calm
--- NOTE | 2024-05-02 17:17 | VATNOTE ---
PICC order noted. After discussion with APPLE CHECKER, no need for PICC at this time.
[2024-05-02] MEDS: LOVENOX 40 MG SC (17:35)
--- NOTE | 2024-05-02 17:40 | PTCARENOTE ---
Assessment unchanged. Na 113, next BMP at 1999. Per Nephrology, will hold off on ordering more 3% Sodium Chloride at this time. Trazodone ordered for HS. Pt resting in bed, daughter at bedside.
[2024-05-02] MEDS: DESYREL 25 MG PO (21:47)
[2024-05-02 21:48] LABS: Blood Urea Nitrogen 12 mg/dl (7-17); Calcium 9.5 mg/dl (8.4-10.2); Carbon Dioxide 25 mmol/L (22-30); Chloride 79 mmol/L (98-107); Estimated Creatinine Clearance 55 ml/min; Glucose 103 mg/dl (70-99); Potassium 3.5 mmol/L (3.5-5.1); Sodium 113 mmol/L (135-145); eGFR > 60.00
--- NOTE | 2024-05-02 22:30 | PTCARENOTE ---
Pt received from HEALTH UNIT SUPERVISOR. Pt daughter at bedside. Pt AAOx3, forgetful at times, anxious. NSR on monitor. satting 98% on RA. Pt with meyer,voiding yellow urine. HS oral care provided. q4 BMP maintained. Call light in reach. Assessment as documented.
[2024-05-03] VITALS (15 sets, daily range): BP systolic 81–143; BP diastolic 51–73; BMI 24.7
[2024-05-03 02:17] LABS: Blood Urea Nitrogen 11 mg/dl (7-17); Calcium 9.5 mg/dl (8.4-10.2); Carbon Dioxide 26 mmol/L (22-30); Chloride 81 mmol/L (98-107); Estimated Creatinine Clearance 55 ml/min; Glucose 142 mg/dl (70-99); Potassium 3.5 mmol/L (3.5-5.1); Sodium 113 mmol/L (135-145); eGFR > 60.00
[2024-05-03 05:22] LABS: Hematocrit 33.3 % (37.0-47.0); Hemoglobin 12.7 g/dL (12.0-16.0); Mean Corpuscular Volume 111.7 fL (81.0-99.0); Red Blood Cell Count 2.98 10^6/uL (4.20-5.40)
[2024-05-03 05:23] LABS: Mean Corp Hgb Conc. 38.1 g/dL (33.0-37.0); Mean Corpuscular Hgb 42.6 pg (27.0-31.0); Mean Platelet Volume 8.8 fL (7.4-10.4); Platelet Count 284 10^3/uL (130-400); Red Cell Dist. Width 10.6 % (11.5-14.5)
[2024-05-03] MEDS: SYNTHROID 25 MCG PO (06:19)
[2024-05-03 06:31] LABS: Blood Urea Nitrogen 11 mg/dl (7-17); Calcium 9.9 mg/dl (8.4-10.2); Carbon Dioxide 25 mmol/L (22-30); Chloride 81 mmol/L (98-107); Estimated Creatinine Clearance 55 ml/min; Glucose 92 mg/dl (70-99); Potassium 3.7 mmol/L (3.5-5.1); Sodium 116 mmol/L (135-145); eGFR > 60.00
[2024-05-03] MEDS: ZESTRIL 20 MG PO (08:16)
[2024-05-03] MEDS: LIPITOR 10 MG PO (08:16)
--- NOTE | 2024-05-03 08:39 | W.PN.HOSP.TC ---
Addendum entered and electronically signed by Rosalino Holt MD 05/03/24 14:44:
Seen and examined by me independently in collaboration with the medical translator.
Lab data and imaging data reviewed.
Addendum as below :
Patient feels bit foggy with her concentration. Feels okay otherwise. No nausea vomiting. No headache.
Hemodynamically stable.
Abdomen soft. Chest clear.
Sodium 116 this morning.
Consider 3% sodium chloride that will slowly improve the sodium. Renal following.
Original Note:
Today's Communication/Plan
-
Hyponatremia Per neuro recs
Supportive care
Assessment / Plan
Assessment / Plan
83 yo woman with hx of essential HTN, HLD, remote hx of breast ca s/p radiation, and unspecified hemoncologic disorder, who presents with severe symptomatic hyponatremia.
Severe symptomatic hyponatremia
Suspect secondary to thiazide diuretic, vs SIADH per urine studies. TSH normal
-3% Saline currently stopped. Plan per nephro. Improvement to 116 noted. Aim to correct by 10 meq per 24 hours
-q4 BMP checks
-1000cc fluid restriction
-holding Chlorthalidone. Hydroxyurea being held, for potential role in hyponatremia
-Patient reports anxiety and brain fog. Neuropsychiatric symptoms likely secondary to severe hyponatremia. - Lorazepam PRN
Essential HTN:
-Holding Chlorthalidone
-continue amlodipine, Lisinopril
HLD - Cont Atorvastatin
Hypothyroidism - Continue Synthroid, TSH normal
DVT PPx Lovenox subQ
FULL CODE
Anticipated Discharge: > 48 hours
Subjective/Interval History
-
Date of Service: May 03, 2024
Improved appetite
Ongoing anxiety
Objective Data
-
Labs:
Laboratory Results
05/02/24 05/03/24 05/03/24
21:21 01:44 05:05
WBC 6.0
Hgb 12.7
Hct 33.3 L
Plt Count 284
Sodium 113 L* 113 L* 116 L*
Potassium 3.5 3.5 3.7
Chloride 79 L 81 L 81 L
Carbon Dioxide 25 26 25
BUN 12 11 11
Creatinine 0.6 0.6 0.6
Glucose 103 H 142 H 92
Calcium 9.5 9.5 9.9
05/03/24 05/03/24 05/03/24
08:32 12:00 16:00
WBC
Hgb
Hct
Plt Count
Sodium Pending Pending Pending
Potassium Pending Pending Pending
Chloride Pending Pending Pending
Carbon Dioxide Pending Pending Pending
BUN Pending Pending Pending
Creatinine Pending Pending Pending
Glucose Pending Pending Pending
Calcium Pending Pending Pending
05/03/24
20:00
WBC
Hgb
Hct
Plt Count
Sodium Pending
Potassium Pending
Chloride Pending
Carbon Dioxide Pending
BUN Pending
Creatinine Pending
Glucose Pending
Calcium Pending
Vital Signs:
Vital Signs
Temp Pulse Resp BP Pulse Ox
97.8 F 83 13 134/73 95
05/03/24 07:36 05/03/24 08:16 05/03/24 07:00 05/03/24 08:16 05/03/24 07:00
I&O
05/02/24 05/03/24 05/04/24
06:59 06:59 06:59
Intake Total 1265 / 1320 805 / 805
Output Total 1950 / 1950 1875 / 1875
Balance -685 / -630 -1070 / -1070
Review of Systems
-
History Source: Patient
Respiratory: Denies Trouble Breathing
Cardiac: Denies Chest Pain
Abdomen/GI: Reports Abdominal Pain (mild RLQ discomfort) and Anorexia (improving); Denies Nausea, Vomiting or Diarrhea
Psych: Reports Anxious and Other (brain fog)
Physical Exam
-
General: Well Nourished and Comfortable
HEENT: Atraumatic, Moist Mucous Membranes and Anicteric
Respiratory: Clear to Auscultation and Non Labored Respirations; Negative Wheezes, Rales, Rhonchi or Crackles
Cardiac: Regular Rhythm and S1/S2; Negative Murmur, Rub or Calf Tenderness
GI: Soft, Nontender, Nondistended and Normal Bowel Sounds
Musculoskeletal: No Clubbing, No Cyanosis and No Edema
Skin: Warm and Dry
Neuro: Awake and Alert
Psych: Confused (mildly confused/forgetful)
[2024-05-03 09:32] LABS: Blood Urea Nitrogen 12 mg/dl (7-17); Calcium 10.3 mg/dl (8.4-10.2); Carbon Dioxide 28 mmol/L (22-30); Chloride 81 mmol/L (98-107); Estimated Creatinine Clearance 48 ml/min; Glucose 114 mg/dl (70-99); Magnesium 2.1 mg/dl (1.6-2.3); Sodium 117 mmol/L (135-145); eGFR > 60.00
--- NOTE | 2024-05-03 09:54 | PTCARENOTE ---
Assumed care of pt from shift lab technician RN. AAOx3. Pt stating she feels less anxious today. DIOMEDE. Hearing aids brought in by daughter. NSR on tele, HRs 80s. SpO2 97% on room air. Pt assisted OOB to chair. x1 assist with RW. Hinojosa draining clear yellow
urine. Na 117 from 0800 BMP. Nephrology following. Call caputo in reach, daughter at bedside. Assessment documented.
[2024-05-03 12:48] LABS: Blood Urea Nitrogen 14 mg/dl (7-17); Calcium 9.9 mg/dl (8.4-10.2); Carbon Dioxide 28 mmol/L (22-30); Chloride 81 mmol/L (98-107); Estimated Creatinine Clearance 42 ml/min; Glucose 132 mg/dl (70-99); Potassium 3.8 mmol/L (3.5-5.1); Sodium 116 mmol/L (135-145); eGFR > 60.00
[2024-05-03 13:01] LABS: Glucose - Point of Care 119 mg/dl (70-99)
--- NOTE | 2024-05-03 13:06 | PTCARENOTE ---
At approximately 1240 pt daughter came into hallway to alert staff 'something is wrong with my mother.' Pt sitting up in chair with blank stare and noticeably pale. Pt nonresponsive and continued with blank stare to verbal stimuli. Unable to follow
commands. Sinus bradycardia noted on hand candy cutter with HRs down to 40s. Rapid Response called. Pt moved by staff from chair to bed. Placed in Trendelenburg. Pt back to normal sinus on tele with HRs 60s. BP 99/72. Spo2 96%. Blood sugar 119. Pt now
able to respond to staff appropriately. Following commands. AAOx3 & following commands. Labs collected and sent. Dr. Holt at bedside. EKG ordered, reading NSR. Pt resting in bed, family at bedside.
--- NOTE | 2024-05-03 13:08 | W.PN.UPDATE ---
Update Note
Progress Note Update
Called to see re: brief unresponsive episode
Seen on the morning rounds when she was feeling little anxious and bit foggy with her concentration. Seen by addendum to resident note.
And ASSET PROTECTION SPECIALIST was called because of brief unresponsive episode
On arrival patient was in a bed and ASSET PROTECTION SPECIALIST was present at the bedside.
Discussed with RN-patient was sitting in the chair and she apparently had a brief unresponsive spell lasting 30 seconds. She eyes were open and she was staring she did not respond much and her heart rate was in 40s. She quickly came out of that.
Patient currently alert and oriented to place person and the time. She did feel that was something was coming on and she felt sickly but not nauseous. She did not feel lightheaded or dizzy.
Denied any headache. No tingling numbness in the hands or legs and no weakness. No chest pain or shortness of breath.
Heart sounds S1 plus S2 heard regular.
No facial asymmetry. No pronator drift. No tremor. No motor weakness. No nystagmus.
Sodium at 12 PM was 116 which is not changed from morning. K was 3.8.
Requested EKG.
Transient unresponsive episode without syncope. Nonfocal neurologically. Associated bradycardia noted. Unclear if this is vagal response but will be vigilant and follow on telemetry for any recurrence of symptoms.
Check EKG.
Repeat BMP.
[2024-05-03 13:26] LABS: INR 0.97; PT 13.2 Sec (11.4-14.6)
[2024-05-03 13:27] LABS: APTT 31.8 Sec (23.4-35.0)
[2024-05-03 13:30] LABS: Lactic Acid 1.3 mmol/L (0.7-2.0)
[2024-05-03 13:42] LABS: Troponin I < 0.012 ng/ml
[2024-05-03 13:49] LABS: Hematocrit 34.5 % (37.0-47.0); Hemoglobin 13.1 g/dL (12.0-16.0); Mean Corpuscular Hgb 42.8 pg (27.0-31.0); Mean Corpuscular Volume 112.7 fL (81.0-99.0); Mean Platelet Volume 8.8 fL (7.4-10.4); Platelet Count 346 10^3/uL (130-400); Red Blood Cell Count 3.06 10^6/uL (4.20-5.40); White Blood Cell Count 9.4 10^3/uL (4.8-10.8)
[2024-05-03 13:53] LABS: Blood Urea Nitrogen 14 mg/dl (7-17); Calcium 9.8 mg/dl (8.4-10.2); Carbon Dioxide 27 mmol/L (22-30); Chloride 80 mmol/L (98-107); Estimated Creatinine Clearance 42 ml/min; Glucose 124 mg/dl (70-99); Potassium 3.8 mmol/L (3.5-5.1); Sodium 115 mmol/L (135-145); eGFR > 60.00
--- NOTE | 2024-05-03 14:03 | W.PN.NEPH.PH ---
Today's Communication / Plan
-
resume HTS
Assessment/Plan
-
Impression:
Euvolemic hyponatremia (sodium of 106)
Hypokalemia
Change of mental status
Hypertension
Dyslipidemia
Hypothyroid
Plan:
Hyponatremia
-Patient critically ill with symptomatic hyponatremia with serum sodium level of 106 on admit appropriate correction to 117 but now decreasing trend
RR this pm for syncope-vagal? , MS baseline now
will resume HTS again and check every 4 hour electrolyte
keep Meyer catheter as she had straight cath intermittently for large volumes
urine osmolality urine sodium: 426 and 112
high risk of CPM, gaol of correction 6-8meq/day
-Fluid restriction set at 1000 cc/day
await -Daughter will try to obtain last lab work and notes from oncology
-Underlying hyponatremia could be due to paraneoplastic phenomena, not resume thiazide
BB soft, holding antihtn meds
check cortisol, normal TSH
d/w nursing and family
high risk encounter
-
-
Date of Service: May 03, 2024
CC / HPI / ROS
-
Chief Complaint:
Symptomatic hyponatremia
History of Present Illness:
Serum sodium up to 117 however now down to 115
RR for syncope, unresponsive for <1,
soft BB
Review of Systems:
Nonoliguric with meyer
No fevers
No shortness of breath or chest
c/o dizziness
Labs
-
Labs:
WBC 9.4 10^3/uL (4.8-10.8) 05/03/24 13:00
RBC 3.06 10^6/uL (4.20-5.40) L 05/03/24 13:00
Hgb 13.1 g/dL (12.0-16.0) 03/07/25 13:00
Hct 34.5 % (37.0-47.0) L 05/03/24 13:00
Plt Count 346 10^3/uL (130-400) D 05/03/24 13:00
eGFR > 60.00 05/03/24 13:00
Phosphorus 2.8 mg/dl (2.5-4.5) 05/01/24 15:14
Albumin 4.7 g/dl (3.5-5.0) 05/01/24 15:14
Physical Exam
-
Vital Signs:
Vital Signs
Temp Pulse Resp BP Pulse Ox
97.5 F 63 21 99/72 97
05/03/24 11:51 05/03/24 13:00 05/03/24 13:00 05/03/24 12:51 05/03/24 13:00
Cardiovascular:: Regular rate and rhythm
Respiratory:: Bilateral: CTA
Lung Excursion:: Normal
Abdomen:: Nontender and Soft
Extremity Edema:: None: Bilateral:
Meyer Catheter: Yes
[2024-05-03] MEDS: SODIUM CHLORIDE 3% 250 IV (14:28)
[2024-05-03 16:14] LABS: Cortisol, Random 29.6 ug/dl
--- NOTE | 2024-05-03 16:22 | CM ---
Patient with Hx recent fall with Dx Severe symptomatic hyponatremia. TEAM GUIDE today for brief unresponsive episode. Room air. Receiving IVF. Per nursing; AAOx3 HOH. Hinojosa.
Message to Radha Jenkins, Resident - noting patient had rapid response today, once stabilized she will need PT/OT Evals for d/c planning.
Plan follow up after seen by PT/OT.
[2024-05-03 16:55] LABS: Blood Urea Nitrogen 18 mg/dl (7-17); Calcium 9.9 mg/dl (8.4-10.2); Carbon Dioxide 29 mmol/L (22-30); Chloride 82 mmol/L (98-107); Estimated Creatinine Clearance 42 ml/min; Glucose 167 mg/dl (70-99); Potassium 3.4 mmol/L (3.5-5.1); Sodium 118 mmol/L (135-145); eGFR > 60.00
--- NOTE | 2024-05-03 17:03 | PN.CDI ---
CDI
- -
CDI:
Physician Documentation Request
Admit Date: 05/01/24 17:29
Dear Doctor Gregory,
05/02 notes and assessment: 'During visit RD able to visualize some protrusion of clavical, temporal wasting and orbital area sunken in. With < 75% estimated needs in > 1 week and observed muscle and fat loss, pt meets AND/ASPEN criteria for mild
protein calorie malnutrition of acute illness'
Based on the above information and your assessment, which of the following most accurately represents the patient's nutritional status?
Mild malnutrition
Other (please specify
[place] Criteria ([facility] Hospitalist 2017)
2 or more criteria must be present for either
non severe or severe malnutrition
Note that the criteria differs related to the
presence of an acute or chronic illness
Acute Illness Chronic Illness
Energy Intake Non Severe: <75% for >7 days Non Severe: <75% for >1 month
Severe: <50% for >5 days Severe: <75% for >1 month
Weight Loss Non Severe: 1-2% over 1 week Non Severe: 5% over 1 month
5% over 1 month 7.5% over 3 months
7.5% over 3 months 10% over 6 months
1 year N/A 20% over 1 year
Severe: >2% over 1 week Severe: >5% over 1 month
>5% over 1 month >7.5% over 3 months
>7.5% over 3 months >10% over 6 months
1 year N/A >20% over 1 year
Body Fat Non Severe: Mild Decrease Non Severe: Mild Loss
Severe: Moderate Decrease Severe: Severe Loss
Muscle Mass Non Severe: Mild Decrease Non Severe: Mild Loss
Severe: Moderate Decrease Severe: Severe Loss
Fluid Accumulation Non Severe: Mild Accumulation Non Severe: Mild Accumulation
Severe: Moderate to severe Severe: Moderate to severe
accumulation accumulation
Reduced Mixer Helper Strength Non Severe: N/A Non Severe: N/A
Severe: Measurably reduced Severe: Measurably reduced
Use of terms such as suspected, likely, concern for, or probable (associated with a specific diagnosis that is being evaluated, monitored, or treated as if it exists) are acceptable and can be coded in the inpatient setting, when documented at the
time of discharge.
Thank you,
Daniella Gaston RN, BSN
CDI Specialist
tiger text
Please use your independent medical judgment in providing your response.
--- NOTE | 2024-05-03 17:16 | PN.CDI ---
CDI
- -
CDI:
Physician Documentation Request
Admit Date: 05/01/24 17:29
Dear Doctor Gregory,
05/02 patient received 40 meq of KCl IV and a total of 60 meq po KCL on 05/01.
Potassium readings:
Laboratory Tests
05/01/24 05/02/24 05/03/24
20:00 04:19 16:28
Potassium 3.2 L 3.3 L 3.4 L
Could you provide a diagnosis that supports the above lab abnormalities and additional evaluation, monitoring and/or treatment rendered:
Hypokalemia
Abnormal lab value clinically insignificant
Other
Use of terms such as suspected, likely, concern for, or probable (associated with a specific diagnosis that is being evaluated, monitored, or treated as if it exists) are acceptable and can be coded in the inpatient setting, when documented at the
time of discharge.
Thank you,
Daniella Gaston RN, BSN
CDI Specialist
tiger text
Please use your independent medical judgment in providing your response.
[2024-05-03] MEDS: LOVENOX 40 MG SC (18:12)
[2024-05-03 20:49] LABS: Blood Urea Nitrogen 20 mg/dl (7-17); Carbon Dioxide 26 mmol/L (22-30); Chloride 84 mmol/L (98-107); Estimated Creatinine Clearance 48 ml/min; Glucose 162 mg/dl (70-99); Potassium 3.7 mmol/L (3.5-5.1); Sodium 119 mmol/L (135-145); eGFR > 60.00
[2024-05-03] MEDS: DESYREL 25 MG PO (22:22)
[2024-05-04] VITALS (16 sets, daily range): BP systolic 90–153; BP diastolic 50–91; PULSE 97–118; O2SAT 96; BMI 24.5
[2024-05-04 01:23] LABS: Blood Urea Nitrogen 23 mg/dl (7-17); Calcium 9.7 mg/dl (8.4-10.2); Carbon Dioxide 27 mmol/L (22-30); Chloride 90 mmol/L (98-107); Estimated Creatinine Clearance 42 ml/min; Glucose 100 mg/dl (70-99); Potassium 3.7 mmol/L (3.5-5.1); Sodium 122 mmol/L (135-145); eGFR > 60.00
--- NOTE | 2024-05-04 02:34 | PTCARENOTE ---
3% saline finished, follow up labs ordered for AM. Patient rang stating she was wet, urine noted on pad with meyer catheter in place. Deflated balloon and advanced catheter, reinflated with 10ml of saline. Care ongoing.
[2024-05-04 05:36] LABS: Blood Urea Nitrogen 24 mg/dl (7-17); Calcium 10.1 mg/dl (8.4-10.2); Carbon Dioxide 29 mmol/L (22-30); Chloride 89 mmol/L (98-107); Estimated Creatinine Clearance 48 ml/min; Glucose 94 mg/dl (70-99); Magnesium 2.1 mg/dl (1.6-2.3); Potassium 3.9 mmol/L (3.5-5.1); Sodium 124 mmol/L (135-145); eGFR > 60.00
[2024-05-04] MEDS: SYNTHROID 25 MCG PO (05:45)
[2024-05-04] MEDS: ATIVAN 0.5 MG PO (09:59)
[2024-05-04] MEDS: LIPITOR 10 MG PO (09:59)
--- NOTE | 2024-05-04 11:09 | W.PN.HOSP.TC ---
Today's Communication/Plan
-
It Na >125 transfer to tele
Assessment / Plan
Assessment / Plan
83 yo woman with hx of essential HTN, HLD, remote hx of breast ca s/p radiation, and unspecified hemoncologic disorder, who presents with severe symptomatic hyponatremia.
Severe symptomatic hyponatremia
Suspect secondary to thiazide diuretic, vs SIADH per urine studies. TSH normal
-slow improvement noted in Na . Aim to increase slowly by 10meq/24hr . 3% Saline as needed. Plan per nephro. Improvement to 124 noted.
-cw BMP checks
-1000cc fluid restriction
-holding Chlorthalidone. Hydroxyurea being held, for potential role in hyponatremia
-Patient reports anxiety and brain fog. Neuropsychiatric symptoms likely secondary to severe hyponatremia. - Lorazepam PRN
Essential HTN:
-Holding Chlorthalidone
-continue amlodipine, Lisinopril
HLD - Cont Atorvastatin
Hypothyroidism - Continue Synthroid, TSH normal
DVT PPx Lovenox subQ
FULL CODE
Anticipated Discharge: > 48 hours
Subjective/Interval History
-
Date of Service: May 04, 2024
Voicing no specific complaints. No further unresponsive episodes.
No nausea vomiting. Tolerating diet.
No headache. No visual disturbances.
Objective Data
-
Labs:
Laboratory Results
05/04/24 05/04/24
00:40 04:31
Sodium 122 L 124 L
Potassium 3.7 3.9
Chloride 90 L 89 L
Carbon Dioxide 27 29
BUN 23 H 24 H
Creatinine 0.8 0.7
Glucose 100 H 94
Calcium 9.7 10.1
Vital Signs:
Vital Signs
Temp Pulse Resp BP Pulse Ox
97.5 F 74 20 128/59 93
05/04/24 07:05 05/04/24 06:00 05/04/24 06:00 05/04/24 06:00 05/04/24 06:00
I&O
05/03/24 05/04/24 05/05/24
06:59 06:59 07:59
Intake Total 805 / 805 720 / 720
Output Total 1875 / 1875 250 / 250
Balance -1070 / -1070 470 / 470
Review of Systems
-
Respiratory: Denies Trouble Breathing
Cardiac: Denies Chest Pain
Neuro: Denies Dizzy
Physical Exam
-
General: Comfortable
Respiratory: Clear to Auscultation and Non Labored Respirations; Negative Accessory Resp Muscle Use
Cardiac: Regular Rhythm and S1/S2
GI: Soft
Neuro: AO x 3
Psych: Calm; Negative Confused
Data Reviewed
-
Labs: Labs Reviewed by me
--- NOTE | 2024-05-04 12:50 | W.PN.NEPH.PH ---
Today's Communication / Plan
-
follow labs, FR 40 ounces/day
Assessment/Plan
-
Impression:
Euvolemic hyponatremia (sodium of 106)
Hypokalemia
Change of mental status
Hypertension
Dyslipidemia
Hypothyroid
Plan:
Hyponatremia
improving sodium to 124 today s/p HTS 3/7 again
cont monitor labs later today and if decreasing likely HTS
keep Meyer catheter as she had straight cath intermittently for large volumes
high risk of CPM, gaol of correction 6-8meq/day
-Fluid restriction change to 1200 cc/day
await baseline labs from family
-Underlying hyponatremia could be due to paraneoplastic phenomena, not resume thiazide
BB soft, holding antihtn meds
cortisol appropriately high, normal TSH
d/w pt and family
-
-
Date of Service: May 04, 2024
CC / HPI / ROS
-
Chief Complaint:
Symptomatic hyponatremia
History of Present Illness:
Serum sodium up to 124 s/p HTS
soft BB
no fever
Review of Systems:
Nonoliguric with meyer
No shortness of breath or chest
no dizziness
Labs
-
Labs:
WBC 9.4 10^3/uL (4.8-10.8) 05/03/24 13:00
RBC 3.06 10^6/uL (4.20-5.40) L 05/03/24 13:00
Hgb 13.1 g/dL (12.0-16.0) 05/03/24 13:00
Hct 34.5 % (37.0-47.0) L 05/03/24 13:00
Plt Count 346 10^3/uL (130-400) D 05/03/24 13:00
eGFR > 60.00 05/04/24 04:31
Phosphorus 2.8 mg/dl (2.5-4.5) 05/01/24 15:14
Albumin 4.7 g/dl (3.5-5.0) 05/01/24 15:14
Physical Exam
-
Vital Signs:
Vital Signs
Temp Pulse Resp BP Pulse Ox
97.4 F 74 20 128/59 93
05/04/24 11:19 05/04/24 06:00 05/04/24 06:00 05/04/24 06:00 05/04/24 06:00
Cardiovascular:: Regular rate and rhythm
Respiratory:: Bilateral: CTA
Lung Excursion:: Normal
Abdomen:: Nontender and Soft
Extremity Edema:: None: Bilateral:
Meyer Catheter: Yes
[2024-05-04] MEDS: TYLENOL 1000 MG PO (15:29)
[2024-05-04 16:10] LABS: Blood Urea Nitrogen 27 mg/dl (7-17); Calcium 10.6 mg/dl (8.4-10.2); Carbon Dioxide 27 mmol/L (22-30); Chloride 85 mmol/L (98-107); Estimated Creatinine Clearance 48 ml/min; Glucose 175 mg/dl (70-99); Potassium 3.8 mmol/L (3.5-5.1); Sodium 124 mmol/L (135-145); eGFR > 60.00
--- NOTE | 2024-05-04 16:14 | VATNOTE ---
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 R arm PIV's removed. Left arm IV x 2 placed. Limb restriction band placed to right.
[2024-05-04] MEDS: LOVENOX 40 MG SC (18:15)
[2024-05-04 20:27] LABS: Sodium 123 mmol/L (135-145)
[2024-05-04] MEDS: SODIUM CHLORIDE 3% 250 IV (21:33)
[2024-05-04] MEDS: DESYREL PO (23:31)
[2024-05-05] VITALS (11 sets, daily range): BP systolic 109–157; BP diastolic 54–78; BMI 24.7
--- NOTE | 2024-05-05 01:19 | PTCARENOTE ---
assumed care of patient. pt is AAOx3, forgetful at times and TORRES MARTINEZ. VSS. daughter at bedside. Na level drawn per order- result 123. 3% NaCl @20ml/hr hung per order. Na level to be checked again around 0300. pt refused trazadone tonight, pretty
sleeping after daughter left but easily arousable. pt 95% RA, but while sleeping, oxygen did decrease to 79%, pt admitted to having sleep apnea. 2L NC applied, now 99% while sleeping. meyer intact draining yellow urine. care ongoing.
[2024-05-05] MEDS: ATIVAN 0.5 MG PO ×2 (01:50→21:32)
[2024-05-05] MEDS: TYLENOL 1000 MG PO ×3 (01:50→21:32)
[2024-05-05 03:55] LABS: Blood Urea Nitrogen 31 mg/dl (7-17); Calcium 9.9 mg/dl (8.4-10.2); Carbon Dioxide 24 mmol/L (22-30); Chloride 94 mmol/L (98-107); Estimated Creatinine Clearance 55 ml/min; Glucose 111 mg/dl (70-99); Potassium 4.1 mmol/L (3.5-5.1); Sodium 127 mmol/L (135-145); eGFR > 60.00
--- NOTE | 2024-05-05 04:19 | PTCARENOTE ---
Na level this morning resulted 127- notified Dr. Ovalle, advised to continue 3% infusion. care ongoing.
[2024-05-05] MEDS: SYNTHROID 25 MCG PO (05:42)
[2024-05-05] MEDS: LIPITOR 10 MG PO (08:32)
--- NOTE | 2024-05-05 10:08 | W.PN.HOSP.TC ---
Today's Communication/Plan
-
Transfer to tele
Assessment / Plan
Assessment / Plan
83 yo woman with hx of essential HTN, HLD, remote hx of breast ca s/p radiation, and unspecified hemoncologic disorder, who presents with severe symptomatic hyponatremia.
Severe symptomatic hyponatremia
Suspect secondary to thiazide diuretic, vs SIADH per urine studies. TSH normal
-slow improvement noted in Na . Aim to increase slowly by 10meq/24hr . 3% Saline as needed. Plan per nephro. Improvement to 127 noted.
-cw BMP checks
-1000cc fluid restriction
-holding Chlorthalidone. Hydroxyurea being held, for potential role in hyponatremia
-No anxiety today
Essential HTN:
-Holding Chlorthalidone
-continue amlodipine, Lisinopril
HLD - Cont Atorvastatin
Hypothyroidism - Continue Synthroid, TSH normal
DVT PPx Lovenox subQ
FULL CODE
Anticipated Discharge: Within 24 hours
Subjective/Interval History
-
Date of Service: May 05, 2024
Feels improved
Objective Data
-
Labs:
Laboratory Results
05/05/24 05/05/24 05/05/24
03:32 03:32 09:15
Sodium 127 L Cancelled Pending
Potassium 4.1
Chloride 94 L
Carbon Dioxide 24
BUN 31 H
Creatinine 0.6
Glucose 111 H
Calcium 9.9
Vital Signs:
Vital Signs
Temp Pulse Resp BP Pulse Ox
98.0 F 71 16 121/65 100
05/05/24 07:00 05/05/24 06:00 05/05/24 06:00 05/05/24 06:00 05/05/24 06:00
I&O
05/04/24 05/05/24 05/06/24
05:59 06:59 06:59
Intake Total
Output Total
Balance
Review of Systems
-
Constitutional: Denies Fever
Respiratory: Denies Trouble Breathing
Cardiac: Denies Chest Pain
Abdomen/GI: Denies Abdominal Pain, Nausea or Vomiting
Neuro: Denies Dizzy
Physical Exam
-
General: No Apparent Distress
Respiratory: Non Labored Respirations; Negative Accessory Resp Muscle Use
Cardiac: Regular Rhythm and S1/S2; Negative Tachycardic
GI: Soft
Neuro: AO x 3
Data Reviewed
-
Labs: Labs Reviewed by me
[2024-05-05 11:16] LABS: Sodium 127 mmol/L (135-145)
--- NOTE | 2024-05-05 12:15 | W.PN.NEPH.PH ---
Today's Communication / Plan
-
consider low dose samsca
Assessment/Plan
-
Impression:
Euvolemic hyponatremia (sodium of 106)
Hypokalemia
Change of mental status
Hypertension
Dyslipidemia
Hypothyroid
Plan:
Hyponatremia
improving sodium to 127 today s/p HTS again
low dose of samsca , check U acid
likely start low dose lasix at d/c
ok for voiding trial, was placed for mild retention
-Fluid restriction 1200 cc/day
-Underlying hyponatremia could be due to paraneoplastic phenomena, not resume thiazide
BB soft, holding antihtn meds
cortisol appropriately high, normal TSH
d/w pt and family
-
-
Date of Service: May 05, 2024
CC / HPI / ROS
-
Chief Complaint:
Symptomatic hyponatremia
History of Present Illness:
Serum sodium up to 127 s/p HTS
bp improving
no fever
Review of Systems:
Nonoliguric with meyer
No shortness of breath or chest pain
no dizziness
baseline anxiety
Labs
-
Labs:
WBC 9.4 10^3/uL (4.8-10.8) 05/03/24 13:00
RBC 3.06 10^6/uL (4.20-5.40) L 05/03/24 13:00
Hgb 13.1 g/dL (12.0-16.0) 05/03/24 13:00
Hct 34.5 % (37.0-47.0) L 05/03/24 13:00
Plt Count 346 10^3/uL (130-400) D 05/03/24 13:00
Sodium 127 mmol/L (135-145) L 05/05/24 10:58
Potassium 4.1 mmol/L (3.5-5.1) 05/05/24 03:32
Chloride 94 mmol/L (98-107) L 05/05/24 03:32
Carbon Dioxide 24 mmol/L (22-30) 05/05/24 03:32
BUN 31 mg/dl (7-17) H 05/05/24 03:32
Creatinine 0.6 mg/dL (0.6-1.0) 05/05/24 03:32
eGFR > 60.00 05/05/24 03:32
Glucose 111 mg/dl (70-99) H 05/05/24 03:32
Calcium 9.9 mg/dl (8.4-10.2) 05/05/24 03:32
Phosphorus 2.8 mg/dl (2.5-4.5) 05/01/24 15:14
Albumin 4.7 g/dl (3.5-5.0) 05/01/24 15:14
Physical Exam
-
Vital Signs:
Vital Signs
Temp Pulse Resp BP Pulse Ox
97.6 F 71 16 121/65 100
05/05/24 11:16 05/05/24 06:00 05/05/24 06:00 05/05/24 06:00 05/05/24 06:00
Cardiovascular:: Regular rate and rhythm
Respiratory:: Bilateral: CTA
Lung Excursion:: Normal
Abdomen:: Nontender and Soft
Extremity Edema:: None: Bilateral:
Meyer Catheter: Yes
[2024-05-05 12:53] LABS: Uric Acid 3.5 mg/dl (2.5-6.2)
[2024-05-05] MEDS: SAMSCA 7.5 MG PO (15:20)
[2024-05-05] MEDS: LOVENOX 40 MG SC (17:24)
[2024-05-05] MEDS: DESYREL 25 MG PO (23:03)
[2024-05-06] VITALS (10 sets, daily range): BP systolic 103–164; BP diastolic 63–86; PULSE 92; O2SAT 95; BMI 24.5
--- NOTE | 2024-05-06 00:21 | PTCARENOTE ---
assumed care of patient. pt is AAOx3 but forgetful and very anxious. pt is tele level of care. daughter at bedside and also aware. pt using bedpan to urinate without issues. some pain to bilateral lower back, PO tylenol given per APR. oxygen 95% RA
while awake, but while sleeping oxygen does drop to 78%, 2L NC applied, now 100%. care ongoing.
[2024-05-06] MEDS: SYNTHROID 25 MCG PO (05:00)
[2024-05-06 05:46] LABS: Blood Urea Nitrogen 24 mg/dl (7-17); Calcium 10.1 mg/dl (8.4-10.2); Carbon Dioxide 29 mmol/L (22-30); Chloride 95 mmol/L (98-107); Estimated Creatinine Clearance 55 ml/min; Glucose 97 mg/dl (70-99); Potassium 3.9 mmol/L (3.5-5.1); Sodium 128 mmol/L (135-145); eGFR > 60.00
--- NOTE | 2024-05-06 07:27 | PTCARENOTE ---
pt to be moved to 2102- report called to 2S RN.
[2024-05-06] MEDS: LIPITOR 10 MG PO (07:34)
[2024-05-06] MEDS: ATIVAN 0.5 MG PO (07:34)
--- NOTE | 2024-05-06 08:18 | PTCARENOTE ---
Patient transferred to via stretcher. Patient belongings sent with patient. PO meds given per MAR prior to transport. Patient on 2L NC. VSS.
[2024-05-06] MEDS: TYLENOL 1000 MG PO (08:45)
--- NOTE | 2024-05-06 11:03 | W.PN.NEPH.PH ---
Today's Communication / Plan
-
samsca
Assessment/Plan
-
Impression:
Euvolemic hyponatremia (sodium of 106)
Hypokalemia
Change of mental status
Hypertension
Dyslipidemia
Hypothyroid
Plan:
follow BMP
samsca today
likely lasix tomorrow
-
-
Date of Service: May 06, 2024
CC / HPI / ROS
-
Chief Complaint:
Symptomatic hyponatremia
History of Present Illness:
Serum sodium up to 128 with samsca
bp improving
no fever
Review of Systems:
Nonoliguric with meyer
No shortness of breath or chest pain
no dizziness
baseline anxiety
good po intake
Labs
-
Labs:
WBC 9.4 10^3/uL (4.8-10.8) 05/03/24 13:00
RBC 3.06 10^6/uL (4.20-5.40) L 05/03/24 13:00
Hgb 13.1 g/dL (12.0-16.0) 05/03/24 13:00
Hct 34.5 % (37.0-47.0) L 05/03/24 13:00
Plt Count 346 10^3/uL (130-400) D 05/03/24 13:00
Sodium 128 mmol/L (135-145) L 05/06/24 05:04
Potassium 3.9 mmol/L (3.5-5.1) 05/06/24 05:04
Chloride 95 mmol/L (98-107) L 05/06/24 05:04
Carbon Dioxide 29 mmol/L (22-30) 05/06/24 05:04
BUN 24 mg/dl (7-17) H 05/06/24 05:04
Creatinine 0.5 mg/dL (0.6-1.0) L 05/06/24 05:04
eGFR > 60.00 05/06/24 05:04
Glucose 97 mg/dl (70-99) 05/06/24 05:04
Calcium 10.1 mg/dl (8.4-10.2) 05/06/24 05:04
Phosphorus 2.8 mg/dl (2.5-4.5) 05/01/24 15:14
Albumin 4.7 g/dl (3.5-5.0) 05/01/24 15:14
Physical Exam
-
Vital Signs:
Vital Signs
Temp Pulse Resp BP Pulse Ox
98.1 F 73 18 151/71 97
05/06/24 08:10 05/06/24 08:10 05/06/24 08:10 05/06/24 08:10 05/06/24 08:10
Cardiovascular:: Regular rate and rhythm
Respiratory:: Bilateral: Coarse
Lung Excursion:: Normal
Abdomen:: Nontender and Soft
Bowel Sounds:: Normal
Extremity Edema:: None: Bilateral:
[2024-05-06] MEDS: SAMSCA 15 MG PO (11:41)
--- NOTE | 2024-05-06 14:34 | CM ---
Chart reviewed; Spoke with pt and daughter
PT recs -snf vs HH - pt lives alone - prefer snf
Requesting referrals to [facility] and [facility]
Referrals sent in [facility]
Will need auth
Plan - SNF when bed/auth obtained and medically ready
--- NOTE | 2024-05-06 17:11 | W.PN.HOSP.TC ---
Addendum entered and electronically signed by Richie Roe MD 05/07/24 00:22:
Attending Addendum-
I saw and evaluated the patient. I reviewed the resident�s note and agree with findings and plan as documented in the resident�s note. Sub: 'I feel like im back to myself!' Patient seen with daughter. States she still feels weak but overall markedly
improved mentation. Denies vision changes GARNER. Full 12 point ROS reviewed and negative except as documented Exam: Vitals reviewed in chart GEN-NAD heart RRR lungs clear abd soft LE no edema Neuro AAOx3
#Severe symptomatic hyponatremia
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
-106->128 over 5 days
-cw BMP checks q 8
-tolvaptan x 1 05/05 and additional dose 05/06
-cont fluid restriction
-DC Chlorthalidone
-?paraneoplastic etiology
-?trazodone contributing would favor dc
#Essential HTN:
-Holding Chlorthalidone and amlodipine
-continue Lisinopril
#HLD - Cont Atorvastatin
#Hypothyroidism - Continue Synthroid, TSH normal
# Essential Thrombocytosis
- restart hydroxurea-doubt contributing to hyponatremia
# Depression
- t/c DC trazodone
# H/O Breast Ca
- s/p rads
- markers have been increasing per onc
- t/c mammo as OP
DVT PPx Lovenox subQ
FULL CODE
Dispo Eventual DC to SNF
Time spent coordinating care, review of plan of care with resident, personally reviewed records in EMR, med rec, consults, notes, labs, radiology, d/w nursing and POA � 53 mins
Original Note:
Today's Communication/Plan
-
Samsca, repeat BMP in a.m. to evaluate sodium
Continue home meds
Assessment / Plan
Assessment / Plan
83-year-old woman with past medical history of hypertension, hyperlipidemia, remote history of breast cancer status post radiation, essential thrombocytosis, chronic lymphedema presented to the ED with symptomatic hyponatremia 106 on admission.
Severe symptomatic hyponatremia
Suspect secondary to thiazide diuretic, vs SIADH per urine studies. TSH normal. Paraneoplastic etiology also a consideration.
-106 on admission on 05/01/2024. Today Na 128
-Last dose hypertonic saline on 05/04 and now on tolvaptan
-Today tolvaptan 15mg per Nephrology
-Daily BMP checks
-1200cc fluid restriction
-holding Chlorthalidone
-Hydroxyurea being held, for potential role in hyponatremia - after discussing hydroxyurea with her oncologist he stated there should be no interaction related to her sodium. Used to treat her essential thrombocytosis. Informed nephrology and will
defer to their judgement.
-Dr. Louise her oncologist also mentioned a few of her markers for breast cancer have been consistently elevated, but not high. Previous work up inconclusive for finding why these markers are high, but no recent imaging, so he said a
paraneoplastic etiology could be possible.
-Consider inpatient mammography to find underlying cause
Essential HTN
-Holding Chlorthalidone
-continue amlodipine, Lisinopril
HLD
- Cont Atorvastatin
Hypothyroidism
- Continue Synthroid, TSH normal
Essential thrombocytosis
� At home on hydroxyurea 500 mg twice daily
-On hold as suspected may be playing a part hyponatremia, however, after discussing with patient's oncologist may be able to restart. Defer to nephrology
-Monitor platelet count as it is uptrending since off the hydroxyurea
Chronic lymphedema
-Currently patient stated legs have been the smallest they have ever been
- Stable
DVT PPx Lovenox subQ
Of note, patient said she recently started carvedilol 6.25 mg twice daily for an irregular heart rhythm. Said she had PACS. Currently in sinus. Prior EKG on 05/01/24 did reveal premature atrial complexes. She sees transit bus driver Dr. Velez. I reached
out to their office, however they were busy. They stated they will call back for confirmation of cardiac condition. Pt stated that she called him about a week or so ago saying she felt dizzier than normal and he increased her carvedilol dose. After
that she felt worse. Likely non-contributory to her Na levels, but worth mentioning if/when we re-start her on her medication. Last sodium on April 01 was 129, however prior sodiums have been normal. Baseline is not low according to patient and
oncologist.
FULL CODE
Anticipated Discharge: 24 - 48 hours
Subjective/Interval History
-
Date of Service: May 06, 2024
Patient feeling significantly better. States that previously had no interest in watching TV, but now excited to watch TV and know was happening in the news.
Objective Data
-
Labs:
Laboratory Results
05/06/24
05:04
Sodium 128 L
Potassium 3.9
Chloride 95 L
Carbon Dioxide 29
BUN 24 H
Creatinine 0.5 L
Glucose 97
Calcium 10.1
Vital Signs:
Vital Signs
Temp Pulse Resp BP Pulse Ox
97.7 F 92 18 135/80 95
05/06/24 15:10 05/06/24 15:10 05/06/24 15:10 05/06/24 15:10 05/06/24 15:10
I&O
05/05/24 05/06/24 05/07/24
06:59 06:59 06:59
Output Total
Balance
Review of Systems
-
History Source: Patient
Constitutional: Reports No Symptoms
EENT: Reports No Symptoms Reported
Respiratory: Reports No Symptoms
Cardiac: Reports No Symptoms
Abdomen/GI: Reports No Symptoms
Genitourinary: Reports No Symptoms
Neuro: Reports No Symptoms
Physical Exam
-
General: Well Developed, No Apparent Distress and Comfortable
HEENT: Normocephalic
Respiratory: Clear to Auscultation
Cardiac: Regular Rhythm and S1/S2
GI: Soft, Nontender, Nondistended and Normal Bowel Sounds
Musculoskeletal: No Edema
Skin: Warm and Dry
Neuro: Awake, Alert and Oriented
Psych: Calm
[2024-05-06] MEDS: LOVENOX 40 MG SC (17:29)
[2024-05-06] MEDS: MIRALAX 17 GRAMS PO (17:30)
[2024-05-06] MEDS: DESYREL 25 MG PO (22:55)
[2024-05-07] VITALS (8 sets, daily range): BP systolic 123–151; BP diastolic 69–89; PULSE 93–116; O2SAT 97; BMI 25.1
[2024-05-07] MEDS: TYLENOL 1000 MG PO ×2 (03:58→14:14)
[2024-05-07] MEDS: SYNTHROID 25 MCG PO (05:36)
[2024-05-07 06:44] LABS: Hematocrit 30.8 % (37.0-47.0); Mean Corp Hgb Conc. 35.7 g/dL (33.0-37.0); Mean Corpuscular Hgb 42.6 pg (27.0-31.0); Mean Corpuscular Volume 119.4 fL (81.0-99.0); Platelet Count 282 10^3/uL (130-400); Red Blood Cell Count 2.58 10^6/uL (4.20-5.40); Red Cell Dist. Width 11.2 % (11.5-14.5); White Blood Cell Count 6.1 10^3/uL (4.8-10.8)
[2024-05-07 07:32] LABS: Blood Urea Nitrogen 25 mg/dl (7-17); Calcium 10.2 mg/dl (8.4-10.2); Carbon Dioxide 29 mmol/L (22-30); Chloride 95 mmol/L (98-107); Estimated Creatinine Clearance 55 ml/min; Glucose 96 mg/dl (70-99); Potassium 4.3 mmol/L (3.5-5.1); Sodium 130 mmol/L (135-145); eGFR > 60.00
[2024-05-07] MEDS: LIPITOR 10 MG PO (08:02)
--- NOTE | 2024-05-07 09:27 | W.PN.HOSP.TC ---
Addendum entered and electronically signed by Richie Roe MD 05/07/24 23:51:
Attending Addendum-
I saw and evaluated the patient. I reviewed the resident�s note and agree with findings and plan as documented in the resident�s note. Sub: feels significant anxiety. worried about QOL and if she will be able to function as previous. seen with
daughter present. States she still feels weak but overall markedly improved mentation. Denies vision changes GARNER. Denies SI or HI. Full 12 point ROS reviewed and negative except as documented Exam: Vitals reviewed in chart GEN-anxious appearing heart
RRR lungs clear abd soft LE no edema Neuro AAOx3
#Severe symptomatic hyponatremia
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
-improving
-cw BMP daily
-tolvaptan x 1 05/05 and additional dose 05/06
-start lasix per nephro
-cont fluid restriction
-DC Chlorthalidone
-?paraneoplastic etiology
-?trazodone contributing-dc
#Essential HTN
-Holding Chlorthalidone and amlodipine
-continue Lisinopril
#HLD - Cont Atorvastatin
#Hypothyroidism - Continue Synthroid, TSH normal
# Essential Thrombocytosis
- restart hydroxurea-doubt contributing to hyponatremia
# Depression/Anxiety
- DC trazodone
- start Wellbutrin
# H/O Breast Ca
- s/p radiation
- markers have been increasing per onc
- mammo as OP
DVT PPx Lovenox subQ
FULL CODE
Dispo- DC to SNF [facility] vs [facility] in am
Time spent coordinating care, review of plan of care with resident, personally reviewed records in EMR, med rec, consults, notes, labs, radiology, d/w nursing and POA � 52 mins
Original Note:
Today's Communication/Plan
-
Restart hydroxyurea
lasix 20mg PO per nephro
Start wellbutrin for anxiety and dc trazadone
discharge if bed available
Assessment / Plan
Assessment / Plan
83-year-old woman with past medical history of hypertension, hyperlipidemia, remote history of breast cancer status post radiation, essential thrombocytosis, chronic lymphedema presented to the ED with symptomatic hyponatremia 106 on admission.
Today Na 130 and stable for discharge if bed to SNF available.
Severe symptomatic hyponatremia
Suspect secondary to thiazide diuretic, vs SIADH per urine studies. TSH normal. Paraneoplastic etiology also a consideration.
-106 on admission on 05/01/2024. Today Na 130
-Last dose hypertonic saline on 05/04
-Tolvaptan 05/05 and 05/06
-Today lasix 20mg PO per nephro
-Daily BMP checks
-1200cc fluid restriction
-holding Chlorthalidone
-Hydroxyurea initially held with concerns affecting her sodium. After discussing further with her oncologist, restart hydroxyurea is unlikely to be contributing to hyponatremia.
-Dr. Louise her oncologist also mentioned a few of her markers for breast cancer have been consistently elevated, but not high. Previous work up inconclusive for finding why these markers are high, but no recent imaging, so he said a
paraneoplastic etiology could be possible.
-Mammography outpatient
Essential HTN
-Holding Chlorthalidone and amlodipine
-continue Lisinopril
Anxiety
-dc trazadone due to risk of SIADH
-Start wellbutrin at starting dose 150 qam. Can increase to 300mg after 4 days.
HLD
- Cont Atorvastatin
Hypothyroidism
- Continue Synthroid, TSH normal
Essential thrombocytosis
� hydroxyurea 500 mg twice daily
Chronic lymphedema
-Currently patient stated legs have been the smallest they have ever been
- Stable
DVT PPx Lovenox subQ
Awaiting call from cardiology office regarding carvedilol.
FULL CODE
Anticipated Discharge: Within 24 hours
Subjective/Interval History
-
Date of Service: May 07, 2024
Patient feels well
Objective Data
-
Labs:
Laboratory Results
05/07/24
06:33
WBC 6.1
Hgb 11.0 L
Hct 30.8 L
Plt Count 282
Sodium 130 L
Potassium 4.3
Chloride 95 L
Carbon Dioxide 29
BUN 25 H
Creatinine 0.6
Glucose 96
Calcium 10.2
Vital Signs:
Vital Signs
Temp Pulse Resp BP Pulse Ox
97.9 F 80 20 135/78 96
05/07/24 07:02 05/07/24 07:02 05/07/24 07:02 05/07/24 07:02 05/07/24 07:02
I&O
05/06/24 05/07/24 05/08/24
06:59 06:59 06:59
Intake Total 360 / 360
Balance 360 / 360
Review of Systems
-
History Source: Patient
EENT: Reports No Symptoms Reported
Respiratory: Reports No Symptoms
Cardiac: Reports No Symptoms
Abdomen/GI: Reports No Symptoms
Neuro: Reports No Symptoms
Physical Exam
-
HEENT: Normocephalic
Respiratory: Clear to Auscultation
Cardiac: Regular Rhythm and S1/S2
GI: Soft, Nontender, Nondistended and Normal Bowel Sounds
Musculoskeletal: No Edema
Skin: Warm and Dry
Neuro: AO x 3
Psych: Calm
[2024-05-07] MEDS: COLACE 100 MG PO (09:59)
[2024-05-07] MEDS: HYDREA 500 MG PO ×2 (10:09→19:58)
--- NOTE | 2024-05-07 12:20 | W.PN.NEPH.PH ---
Today's Communication / Plan
-
lasix
Assessment/Plan
-
Impression:
Euvolemic hyponatremia (sodium of 106)
Hypokalemia
Change of mental status
Hypertension
Dyslipidemia
Hypothyroid
Plan:
follow BMP
lasix 20mg daily
-
-
Date of Service: May 07, 2024
CC / HPI / ROS
-
Chief Complaint:
Symptomatic hyponatremia
History of Present Illness:
Serum sodium up to 130 with samsca
bp improving
no fever
Review of Systems:
Nonoliguric with meyer
No shortness of breath or chest pain
no dizziness
baseline anxiety
good po intake
constipated
Labs
-
Labs:
WBC 6.1 10^3/uL (4.8-10.8) 05/07/24 06:33
RBC 2.58 10^6/uL (4.20-5.40) L 05/07/24 06:33
Hgb 11.0 g/dL (12.0-16.0) L 05/07/24 06:33
Hct 30.8 % (37.0-47.0) L 05/07/24 06:33
Plt Count 282 10^3/uL (130-400) 05/07/24 06:33
Sodium 130 mmol/L (135-145) L 05/07/24 06:33
Potassium 4.3 mmol/L (3.5-5.1) 05/07/24 06:33
Chloride 95 mmol/L (98-107) L 05/07/24 06:33
Carbon Dioxide 29 mmol/L (22-30) 05/07/24 06:33
BUN 25 mg/dl (7-17) H 05/07/24 06:33
Creatinine 0.6 mg/dL (0.6-1.0) 05/07/24 06:33
eGFR > 60.00 05/07/24 06:33
Glucose 96 mg/dl (70-99) 05/07/24 06:33
Calcium 10.2 mg/dl (8.4-10.2) 05/07/24 06:33
Phosphorus 2.8 mg/dl (2.5-4.5) 05/01/24 15:14
Albumin 4.7 g/dl (3.5-5.0) 05/01/24 15:14
Physical Exam
-
Vital Signs:
Vital Signs
Temp Pulse Resp BP Pulse Ox
97.7 F 123 18 136/86 96
05/07/24 12:15 05/07/24 12:15 05/07/24 12:15 05/07/24 12:15 05/07/24 12:15
Cardiovascular:: Regular rate and rhythm
Respiratory:: Bilateral: CTA
Lung Excursion:: Normal
Abdomen:: Nontender and Soft
Bowel Sounds:: Normal
Extremity Edema:: None: Bilateral:
--- NOTE | 2024-05-07 12:21 | CM ---
Chart reviewed
Spoke with Jud at - will review referral
Message left with Mónica at [facility] - requested review of referral
Plan - snf when bed/auth obtained and medically stable
[2024-05-07] MEDS: LASIX 20 MG PO (13:25)
[2024-05-07] MEDS: LOVENOX 40 MG SC (17:05)
[2024-05-07] MEDS: ATIVAN 0.5 MG PO (19:58)
[2024-05-08] MEDS: MIRALAX 17 GRAMS PO (00:07)
[2024-05-08 03:19] VITALS: BP 148/84
[2024-05-08] MEDS: TYLENOL 1000 MG PO (05:02)
[2024-05-08] MEDS: SYNTHROID 25 MCG PO (05:02)
[2024-05-08 05:15] VITALS: BMI 25.2
[2024-05-08] MEDS: DULCOLAX 10 MG RECTAL (05:45)
[2024-05-08 07:20] VITALS: BP 137/80
[2024-05-08 07:39] LABS: Hematocrit 30.8 % (37.0-47.0); Mean Corp Hgb Conc. 35.7 g/dL (33.0-37.0); Mean Corpuscular Hgb 43.1 pg (27.0-31.0); Mean Corpuscular Volume 120.8 fL (81.0-99.0); Mean Platelet Volume 9.4 fL (7.4-10.4); Platelet Count 292 10^3/uL (130-400); Red Blood Cell Count 2.55 10^6/uL (4.20-5.40); Red Cell Dist. Width 11.6 % (11.5-14.5); White Blood Cell Count 8.5 10^3/uL (4.8-10.8)
[2024-05-08 08:13] LABS: Blood Urea Nitrogen 27 mg/dl (7-17); Calcium 10.1 mg/dl (8.4-10.2); Carbon Dioxide 30 mmol/L (22-30); Chloride 96 mmol/L (98-107); Estimated Creatinine Clearance 55 ml/min; Glucose 94 mg/dl (70-99); Potassium 3.9 mmol/L (3.5-5.1); Sodium 130 mmol/L (135-145); eGFR > 60.00
--- NOTE | 2024-05-08 08:47 | W.PN.HOSP.TC ---
Addendum entered and electronically signed by Richie Roe MD 05/09/24 00:38:
Attending Addendum-
I saw and evaluated the patient. I reviewed the resident�s note and agree with findings and plan as documented in the resident�s note. Sub: feels great. ecstatic s/p BM. seen with daughter present. ready to go to rehab. Full 12 point ROS reviewed
and negative except as documented Exam: Vitals reviewed in chart GEN-NAD heart RRR lungs clear abd soft LE no edema Neuro AAOx3
#Severe symptomatic hyponatremia
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
-stable @ 130
-tolvaptan x 1 05/05 and additional dose 05/06
-cont lasix per nephro
-cont fluid restriction
-DC Chlorthalidone
-?paraneoplastic etiology
-?trazodone contributing-dc
#Essential HTN
-Holding Chlorthalidone and amlodipine
-continue Lisinopril
#HLD - Cont Atorvastatin
#Hypothyroidism - Continue Synthroid, TSH normal
# Essential Thrombocytosis
- restart hydroxurea-doubt contributing to hyponatremia
# Depression/Anxiety
- DC trazodone
- DC new Wellbutrin start mirtazapine
# H/O Breast Ca
- s/p radiation
- markers have been increasing per onc
- mammo as OP
DVT PPx Lovenox subQ
FULL CODE
Dispo- DC to SNF [facility]
Time spent coordinating care, DC planning, review of DC plan of care with resident, transition of care, review of records, med rec/scripts sent electronically, consults, notes, d/w consultants, nursing, family, and CM�33 mins
Original Note:
Today's Communication/Plan
-
Discharge to SNF
Assessment / Plan
Assessment / Plan
83-year-old woman with past medical history of hypertension, hyperlipidemia, remote history of breast cancer status post radiation, essential thrombocytosis, chronic lymphedema presented to the ED with symptomatic hyponatremia 106 on admission.
Today Na 130 and stable for discharge if bed to SNF available.
Severe symptomatic hyponatremia
Suspect secondary to thiazide diuretic, vs SIADH per urine studies. TSH normal. Paraneoplastic etiology also a consideration.
-106 on admission on 05/01/2024. Today Na 130
-Last dose hypertonic saline on 05/04
-Tolvaptan 05/05 and 05/06
-Daily BMP checks
-1200cc fluid restriction
-holding Chlorthalidone
-Hydroxyurea initially held with concerns affecting her sodium. After discussing further with her oncologist, restart hydroxyurea is unlikely to be contributing to hyponatremia.
-Dr. Louise her oncologist also mentioned a few of her markers for breast cancer have been consistently elevated, but not high. Previous work up inconclusive for finding why these markers are high, but no recent imaging, so he said a
paraneoplastic etiology could be possible.
-Mammography outpatient
-Stable for discharge
-continue lasix 20mg PO daily per nephro upon discharge
Essential HTN
-d/c chlorthalidone, restart amlodipine upon discharge
-continue Lisinopril at discharge
Anxiety
-decided to discharge with mirtazapine instead of Wellbutrin as she also has difficulty sleeping
-Daughter stated today she was taking zolpidem previously so this will help with that
HLD
- Cont Atorvastatin
Hypothyroidism
- Continue Synthroid, TSH normal
Essential thrombocytosis
� hydroxyurea 500 mg twice daily
Chronic lymphedema
-Currently patient stated legs have been the smallest they have ever been
- Stable
Constipation
-Fleet enema today as no BM for past several days and miralax and colase did not work
-Afterwards pt felt much better
BMI 25
-Registered dietitian able to visualize some protrusion of clavical, temporal wasting and orbital area sunken in. With < 75% estimated needs in > 1 week and observed muscle and fat loss, pt meets AND/ASPEN criteria for mild protein calorie
malnutrition of acute illness
-Mild malnutrition per dietary team
DVT PPx Lovenox subQ
Awaiting call from cardiology office regarding carvedilol.
FULL CODE
Anticipated Discharge: Today
Subjective/Interval History
-
Date of Service: May 08, 2024
Objective Data
-
Labs:
Laboratory Results
05/08/24
06:39
WBC 8.5
Hgb 11.0 L
Hct 30.8 L
Plt Count 292
Sodium 130 L
Potassium 3.9
Chloride 96 L
Carbon Dioxide 30
BUN 27 H
Creatinine 0.6
Glucose 94
Calcium 10.1
Vital Signs:
Vital Signs
Temp Pulse Resp BP Pulse Ox
97.6 F 90 16 137/80 92
05/08/24 07:20 05/08/24 07:20 05/08/24 07:20 05/08/24 07:20 05/08/24 07:20
I&O
05/07/24 05/08/24 05/09/24
06:59 06:59 06:59
Intake Total 360 / 360 640 / 640
Balance 360 / 360 640 / 640
Review of Systems
-
History Source: Patient
Constitutional: Reports No Symptoms
Respiratory: Reports No Symptoms
Cardiac: Reports No Symptoms
Abdomen/GI: Reports Constipated
Neuro: Reports No Symptoms
Physical Exam
-
General: Well Developed and No Apparent Distress
HEENT: Normocephalic
Respiratory: Clear to Auscultation
Cardiac: Regular Rhythm and S1/S2
GI: Soft, Nontender, Nondistended and Normal Bowel Sounds
Musculoskeletal: No Edema
Skin: Warm and Dry
Neuro: AO x 3
Psych: Calm
[2024-05-08] MEDS: LASIX 20 MG PO (09:40)
[2024-05-08] MEDS: HYDREA 500 MG PO (09:41)
[2024-05-08] MEDS: WELLBUTRIN XL (24 hour extended release) 150 MG PO (09:41)
[2024-05-08] MEDS: LIPITOR 10 MG PO (09:42)
[2024-05-08] MEDS: ATARAX 25 MG PO (09:47)
[2024-05-08 11:15] VITALS: BP 135/81
--- NOTE | 2024-05-08 11:25 | CM ---
Addendum entered by Judi Obrien 05/08/24 15:03:
Family to transport pt
Updated nsg and [facility] - 3PM
Addendum entered by Judi Obrien 05/08/24 13:37:
Jud at updated with auth info
Plan - transfer to [facility]
R - [phone]
F - [phone]
Addendum entered by Judi Obrien 05/08/24 13:25:
Received call from Claudia at [facility]
Auth approved for skilled level of care
start date 05/08; NRD 05/13. Call [phone] with updates
Auth # [id number]
Addendum entered by Judi Obrien 05/08/24 11:54:
Spoke with Claudia at [facility]
Clinicals reviewed. Sent to mobile paramedical examiner for review
[facility] rep will call with determination
Plan - [facility] when auth obtained
Original Note:
Spoke with Jud at [facility] - can accept today
Team updated - will need covid prior to d/c
Updated patient and daughter at bedside
Given IMM
Will obtain auth
Plan - [facility] when auth obtained
--- NOTE | 2024-05-08 12:49 | W.PN.NEPH.PH ---
Today's Communication / Plan
-
ok to d/c
Assessment/Plan
-
Impression:
Euvolemic hyponatremia (sodium of 106)
Hypokalemia
Change of mental status
Hypertension
Dyslipidemia
Hypothyroid
Plan:
stable sodium cont lasix and FR
will dose samsca today
if d/c today need BMP in 3-4days at rehab
f/u PCP
d/w family
-
-
Date of Service: May 08, 2024
CC / HPI / ROS
-
Chief Complaint:
Symptomatic hyponatremia
History of Present Illness:
Serum sodium no change 130 on lasix
bp stable
no fever
Review of Systems:
Nonoliguric with meyer
No shortness of breath or chest pain
no dizziness
baseline anxiety
good po intake
constipated-had BM today
Labs
-
Labs:
WBC 8.5 10^3/uL (4.8-10.8) 05/08/24 06:39
RBC 2.55 10^6/uL (4.20-5.40) L 05/08/24 06:39
Hgb 11.0 g/dL (12.0-16.0) L 05/08/24 06:39
Hct 30.8 % (37.0-47.0) L 05/08/24 06:39
Plt Count 292 10^3/uL (130-400) 05/08/24 06:39
Sodium 130 mmol/L (135-145) L 05/08/24 06:39
Potassium 3.9 mmol/L (3.5-5.1) 05/08/24 06:39
Chloride 96 mmol/L (98-107) L 05/08/24 06:39
Carbon Dioxide 30 mmol/L (22-30) 05/08/24 06:39
BUN 27 mg/dl (7-17) H 05/08/24 06:39
Creatinine 0.6 mg/dL (0.6-1.0) 05/08/24 06:39
eGFR > 60.00 05/08/24 06:39
Glucose 94 mg/dl (70-99) 05/08/24 06:39
Calcium 10.1 mg/dl (8.4-10.2) 05/08/24 06:39
Phosphorus 2.8 mg/dl (2.5-4.5) 05/01/24 15:14
Albumin 4.7 g/dl (3.5-5.0) 05/01/24 15:14
Physical Exam
-
Vital Signs:
Vital Signs
Temp Pulse Resp BP Pulse Ox
97.7 F 92 16 135/81 95
05/08/24 11:15 05/08/24 11:15 05/08/24 11:15 05/08/24 11:15 05/08/24 11:15
Cardiovascular:: Regular rate and rhythm
Respiratory:: Bilateral: CTA
Lung Excursion:: Normal
Abdomen:: Nontender and Soft
Bowel Sounds:: Normal
Extremity Edema:: None: Bilateral:
[2024-05-08 13:26] LABS: COVID-19 Antigen Negative (Negative)
[2024-05-08 13:59] LABS: Folate > 20.0 ng/ml (2.76-20); Vitamin B12 960 pg/ml (239-931)
[2024-05-08] MEDS: SAMSCA 15 MG PO (14:27)
[2024-05-08 14:50] VITALS: BP 132/78
--- NOTE | 2024-05-08 19:14 | W.DCSUMMARY ---
Addendum entered and electronically signed by Richie Roe MD 05/09/24 00:40:
Read, reviewed, and agree. See same day progress note for additional details. Referred to [facility]-F/U with Dr. Clements
Kar Roe MD
Original Note:
Documented by User: Letha Clements MD, Resident 05/08/24 19:15
Discharge Summary
Discharge Data
Date of Admission: 05/01/24
Date of Discharge: 05/08/24
-
Pending Results: Yes
Hospital Course
Primary diagnosis:
Symptomatic hyponatremia
Secondary diagnosis:
Hypertension
Anxiety
Hyperlipidemia
Hypothyroidism
Essential thrombocytosis
Chronic lymphedema
Constipation
83-year-old female presented to [facility] on 05/02/24 due to increased fatigue and feeling panicky. Sodium found to be 106. Her chlorthalidone dose recently increased. Patient was admitted to ICU and started on hypertonic saline. She
received multiple doses of hypertonic saline and tolvaptan per nephrology. Sodium slowly started to up-trend. By 05/07/2024, sodium was 130. Patient also noted to be hypotensive. Chlorthalidone was held. As sodium improved, nephrology
recommended 20 mg Lasix p.o. daily. She experienced significant anxiety. Previously used zolpidem to sleep and not on prior anxiety and depression medication.
Today, sodium is 130 and patient is clinically stable for discharge. Continue on Lasix 20 mg p.o. daily per nephrology. Recommended starting antidepression/anxiety medication mirtazapine to assist with anxiety and sleep. As needed lorazepam also
provided at discharge. Discontinue chlorthalidone and carvedilol as patient did not require these medications for blood pressure management on inpatient setting. Continue with amlodipine and lisinopril.
Discharge Plan
-
Patient Disposition: Residential/SNF
Discharge Diagnosis/Procedures: Symptomatic hyponatremia
Condition: Good
Diet: As tolerated
Activity: As tolerated
Driving Restrictions: As prior to admission
Bathing Restrictions: None
Referrals:
CAPO CHAN MD [Family Provider] -
Jeremiah Louise DO [Non-Admitting Privileges] - in two to four weeks
Letha Clements MD, Resident [[facility] Resident Year1] - in less than 1 week
Additional Discharge Medication Instructions: Repeat BMP in one week to evaluate sodium
Prescriptions:
New
furosemide 20 mg Tablet
20 mg PO DAILY 30 Days Qty: 30 0RF
mirtazapine 7.5 mg tablet
7.5 mg PO HS Qty: 30 0RF
lorazepam 0.5 mg tablet
0.5 mg PO Q8H Qty: 9 0RF
Continued
hydroxyurea 500 mg Capsule
500 mg PO BID
atorvastatin 10 mg Tablet
10 mg PO DAILY
lisinopril 20 mg Tablet
20 mg PO BID
amlodipine 5 mg Tablet
5 mg PO DAILY
acetaminophen [Tylenol Extra Strength] 500 mg Tablet
1,000 mg PO Q6HPRN PRN (Reason: mild pain/fever)
levothyroxine 25 mcg Tablet
25 mcg PO DAILY
cholecalciferol (vitamin D3) [Vitamin D3] 25 mcg (1,000 unit) Tablet
25 mcg PO DAILY
Discontinued
chlorthalidone 25 mg Tablet
25 mg PO DAILY
carvedilol 6.25 mg Tablet
6.25 mg PO BID
Discharge Orders:
Discharge Patient (As Directed); Ordered 05/08/24
Ordered By: Letha Clements
Discharge Date and Time
Discharge Date/Time: 05/08/24 15:45
Print Language: SENEGALESE

Documented by User: Richie Roe MD 05/09/24 00:35
Discharge Summary
Discharge Data
Date of Admission: 05/01/24
Date of Discharge: 05/09/24
Discharge Plan
-
Patient Disposition: Residential/SNF
Discharge Diagnosis/Procedures: Symptomatic hyponatremia
Condition: Good
Diet: As tolerated
Activity: As tolerated
Driving Restrictions: As prior to admission
Bathing Restrictions: None
Referrals:
CAPO CHAN MD [Family Provider] -
Jeremiah Louise DO [Non-Admitting Privileges] - in two to four weeks
Letha Clements MD, Resident [Family Practice Resident Year1] - in less than 1 week
Additional Discharge Medication Instructions: Repeat BMP in one week to evaluate sodium
Prescriptions:
New
furosemide 20 mg Tablet
20 mg PO DAILY 30 Days Qty: 30 0RF
mirtazapine 7.5 mg tablet
7.5 mg PO HS Qty: 30 0RF
lorazepam 0.5 mg tablet
0.5 mg PO Q8H Qty: 9 0RF
Continued
hydroxyurea 500 mg Capsule
500 mg PO BID
atorvastatin 10 mg Tablet
10 mg PO DAILY
lisinopril 20 mg Tablet
20 mg PO BID
amlodipine 5 mg Tablet
5 mg PO DAILY
acetaminophen [Tylenol Extra Strength] 500 mg Tablet
1,000 mg PO Q6HPRN PRN (Reason: mild pain/fever)
levothyroxine 25 mcg Tablet
25 mcg PO DAILY
cholecalciferol (vitamin D3) [Vitamin D3] 25 mcg (1,000 unit) Tablet
25 mcg PO DAILY
Discontinued
chlorthalidone 25 mg Tablet
25 mg PO DAILY
carvedilol 6.25 mg Tablet
6.25 mg PO BID
Discharge Orders:
Discharge Patient (As Directed); Ordered 05/08/24
Ordered By: Letha Clements
Discharge Date and Time
Discharge Date/Time: 05/08/24 15:45
Print Language: SENEGALESE
== END 2024-05-08 15:45 | DRG 644 ==
LOC: 2 SOUTH 17:29
PROVIDERS: Internal Medicine; Physician Assistant; Specialist; Student in an Organized Health Care Education/Training Program; ADMITTING PHYSICIAN Student in an Organized Health Care Education/Training Program; ATTENDING PHYSICIAN Family Medicine; CONSULT PHYSICIAN Specialist; EMERGENCY PHYSICIAN Emergency Medicine; FAMILY PHYSICIAN Student in an Organized Health Care Education/Training Program; OTHER PHYSICIAN Internal Medicine
PROC: 0T9B70Z Drainage of Bladder with Drainage Device, Via Natural or Artificial Opening (ICD-10-PCS; 2024-05-02)
DX: E22.2 Syndrome of inappropriate secretion of antidiuretic hormone (principal); E44.1 Mild protein-calorie malnutrition; R42 Dizziness and giddiness; I10 Essential (primary) hypertension; E78.00 Pure hypercholesterolemia, unspecified; R41.82 Altered mental status, unspecified; E03.9 Hypothyroidism, unspecified; E87.6 Hypokalemia; E83.42 Hypomagnesemia; R33.9 Retention of urine, unspecified; F41.9 Anxiety disorder, unspecified; R26.9 Unspecified abnormalities of gait and mobility; I89.0 Lymphedema, not elsewhere classified; D47.3 Essential (hemorrhagic) thrombocythemia; F32.A Depression, unspecified; K59.00 Constipation, unspecified; W18.39XA Other fall on same level, initial encounter; Y93.89 Activity, other specified; Y92.89 Other specified places as the place of occurrence of the external cause; Z60.2 Problems related to living alone; Z88.1 Allergy status to other antibiotic agents; Z79.890 Hormone replacement therapy; Z11.52 Encounter for screening for COVID-19; Z85.3 Personal history of malignant neoplasm of breast; Z92.3 Personal history of irradiation; Z68.25 Body mass index [BMI] 25.0-25.9, adult
CPT/HCPCS: 70450; 71045; 80048; 80053; 81003; 82533; 82607; 82746; 82962; 83605; 83735; 83930; 83935; 84100; 84295; 84300; 84443; 84484; 84550; 85025; 85027; 85610; 85730; 87502; 87811; 93005; 96360; 97116; 97162; 97167; 97530; 97535; 99291